=== PATIENT | male | born 1965 | race American Indian/Alaskan Native ===

== ENCOUNTER 2020-04-14 11:51 | Inpatient (IN) | payer OTHER ==
--- NOTE | 2020-04-14 12:38 | Emergency Department Report ---
ED N/V/D HPI - General Chief complaint: Dyspnea/Respdistress Stated complaint: sob/covid (+) 3weeks ago Time Seen by Provider: 04/14/20 12:30 Source: patient Mode of arrival: Ambulatory Limitations: No Limitations - History of Present Illness Initial comments: 54-year-old male with history of diabetes presents to ED with nausea, vomiting, shortness of breath. Patient states symptoms began on yesterday. States he was vomiting all throughout the night. Patient states he took some medication to help with his nausea, which is currently improved, however he is complaining of bilateral flank pain at this time. Possibly from all of the vomiting. He denies any abdominal pain, urinary frequency, and hematuria. Patient states he feels dehydrated at this time. Patient tested positive for myers virus approximately 1 month ago. 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 Patient tested positive, but states he was asymptomatic. Patient denies ever having fever or cough. He denies chest pain, leg pain or swelling. MD complaint: nausea, vomiting -: Last night Description of Vomiting: food contents Associated Abdominal Pain: No Severity: moderate Quality: aching Consistency: constant Improves with: none Worsens with: eating Associated Symptoms: nausea/vomiting, shortness of breath. denies: chest pain, cough, fever/chills - Related Data Home Medications Medication Instructions Recorded Confirmed Last Taken Lisinopril/Hydrochlorothiazide 1 tab PO QDAY 10/23/14 10/23/14 10/22/14 [Zestoretic 10-12.5 mg] Previous Rx's Medication Instructions Recorded Last Taken Type Insulin Glargine,Hum.rec.anlog 30 unit SQ QHS #1 vial 10/24/14 Unknown Rx [Lantus] Insulin Glulisine [Apidra] 5 units SUB-Q ACHS #1 vial 10/24/14 Unknown Rx Metformin HCl [Glucophage] 1,000 mg PO BID #60 tablet 10/24/14 Unknown Rx Allergies Allergy/AdvReac Type Severity Reaction Status Date / Time No Known Allergies Allergy Verified 10/22/14 23:31 ED Review of Systems ROS: Stated complaint: sob/covid (+) 3weeks ago Other details as noted in HPI Comment: All other systems reviewed and negative Constitutional: denies: chills, fever Respiratory: shortness of breath. denies: cough Cardiovascular: denies: chest pain Gastrointestinal: nausea, vomiting. denies: abdominal pain, diarrhea Musculoskeletal: back pain ED Past Medical Hx - Past Medical History Previous Medical History?: Yes Hx Hypertension: Yes Hx Congestive Heart Failure: No Hx Diabetes: Yes Hx Asthma: No Hx COPD: No Additional medical history: colon ca - Social History Smoking Status: Never Smoker Substance Use Type: None - Medications Home Medications: Home Medications Medication Instructions Recorded Confirmed Last Taken Type Lisinopril/Hydrochlorothiazide 1 tab PO QDAY 10/23/14 10/23/14 10/22/14 History [Zestoretic 10-12.5 mg] Insulin Glargine,Hum.rec.anlog 30 unit SQ QHS #1 vial 10/24/14 Unknown Rx [Lantus] Insulin Glulisine [Apidra] 5 units SUB-Q ACHS #1 vial 10/24/14 Unknown Rx Metformin HCl [Glucophage] 1,000 mg PO BID #60 tablet 10/24/14 Unknown Rx ED Physical Exam - General Limitations: No Limitations General appearance: alert, in no apparent distress - Head Head exam: Present: atraumatic, normocephalic - Eye Eye exam: Present: normal appearance - ENT ENT exam: Present: mucous membranes dry - Neck Neck exam: Present: normal inspection - Respiratory Respiratory exam: Present: normal lung sounds bilaterally, other (Tachypnea present) - Cardiovascular Cardiovascular Exam: Present: normal rhythm, tachycardia - GI/Abdominal GI/Abdominal exam: Present: soft. Absent: distended, tenderness - Extremities Exam Extremities exam: Present: normal inspection. Absent: pedal edema, calf tenderness - Back Exam Back exam: Absent: CVA tenderness (R), CVA tenderness (L) - Neurological Exam Neurological exam: Present: alert, oriented X3 - Psychiatric Psychiatric exam: Present: normal affect, normal mood - Skin Skin exam: Present: warm, dry, intact, normal color ED Course Vital Signs 04/14/20 11:56 Temperature 97.4 F L Pulse Rate 117 H Respiratory 40 H Rate Blood Pressure 96/58 O2 Sat by Pulse 97 Oximetry ED Medical Decision Making - Lab Data Result diagrams: 04/14/20 13:02 04/14/20 16:39 - EKG Data -: EKG Interpreted by Me EKG shows normal: sinus rhythm, axis, intervals, QRS complexes, ST-T waves Rate: tachycardia (rate 105) - EKG Data Interpretation: no acute changes - Radiology Data Radiology results: report reviewed, image reviewed - Medical Decision Making 54-year-old male with history of diabetes found to be in DKA. Patient has glucose of 704, with anion gap of 52 and a bicarb of 5. Sodium is 5.8. WBC is 21. UA shows no evidence of UTI. Chest x-ray is negative for infiltrate. Sepsis work-up was done due to patient meeting sirs criteria. Cultures were obtained and 1 dose of cefepime given. IV fluids currently being administered, along with insulin drip. Calcium gluconate given for hyperkalemia. Insulin drip should improve potassium level. EKG showed no changes consistent with hyperkalemia. Patient will be admitted to hospitalist, Dr Cesar, for further management. - Differential Diagnosis DKA, sepsis, pneumonia Critical Care Time: Yes Critical care time in (mins) excluding proc time.: 35 Critical care attestation.: If time is entered above; I have spent that time in minutes in the direct care of this critically ill patient, excluding procedure time. Critical Care Time: 35 min ED Disposition Clinical Impression: DKA (diabetic ketoacidosis) Disposition: OP ADMIT IP TO THIS HOSP Is pt being admited?: Yes Condition: Stable
[2020-04-14 13:18] LABS: Hematocrit 46.1 % (35.5-45.6); Hemoglobin 14.6 gm/dl (11.8-15.2); Mean Corpuscular HGB Conc 32 % (32-34); Mean Corpuscular Volume 96 fl (84-94); Platelet Count 312 K/mm3 (140-440); Red Blood Count 4.79 M/mm3 (3.65-5.03); Red Cell Distribution Width 15.7 % (13.2-15.2)
[2020-04-14 13:26] LABS: INR 1.16 (0.87-1.13); Partial Thromboplastin Time 21.9 Sec. (24.2-36.6)
[2020-04-14] MEDS ORDERED: SODIUM CHLORIDE 0.9% 1000 ML 1,000 ML IV ONE ×2 (13:29)
[2020-04-14 13:39] LABS: Alanine Aminotransferase 17 units/L (7-56); Albumin 4.5 g/dL (3.9-5); BUN/Creatinine Ratio 22; Blood Urea Nitrogen 42 mg/dL (9-20); Calcium 9.4 mg/dL (8.4-10.2); Hemolysis Index 26
[2020-04-14] MEDS ORDERED: SODIUM CHLORIDE 0.9% 1000 ML IV SOLN IV ONE (13:49)
[2020-04-14] MEDS ORDERED: CEFEPIME/NS 2 GM/100 ML 2 GM/100 ML BAG IV ONE (13:50)
--- NOTE | 2020-04-14 13:56 | XRay Report ---
CHEST 1 VIEW INDICATION / CLINICAL INFORMATION: sob. COMPARISON: 12/24/2011 FINDINGS: SUPPORT DEVICES: None. HEART / MEDIASTINUM: No significant abnormality. LUNGS / PLEURA: No significant pulmonary or pleural abnormality. No pneumothorax. ADDITIONAL FINDINGS: No significant additional findings. IMPRESSION: No acute pulmonary or pleural abnormality Signer Name: Bao Solorzano MD FACR Signed: 04/14/2020 1:51 PM Workstation Name: [id number]
[2020-04-14 13:57] LABS: Basophils % (Manual) 0 % (0.0-1.8); Eosinophils % (Manual) 0 % (0.0-4.3); Total Cells Counted 100
[2020-04-14 13:58] LABS: Platelet Estimate Consistent w Auto
[2020-04-14] MEDS ORDERED: D5W/0.45% NACL 1,000 ML IV SCH (14:00)
[2020-04-14 15:08] LABS: Calcium 8.8 mg/dL (8.4-10.2)
[2020-04-14] MEDS ORDERED: CALCIUM GLUCONATE 1,000 MG in SODIUM CHLORIDE 0.9% 100 ML IV ONE (15:17)
[2020-04-14 15:29] LABS: Bilirubin,Urine NEG (Negative); Blood,Urine NEG (Negative); Color,Urine Yellow (Yellow); Protein,Urine <15 mg/dL mg/dL (Negative); Urobilinogen,Urine < 2.0 mg/dL (<2.0)
[2020-04-14] MEDS: INSULIN REGULAR, HUMAN 100 UNITS in SODIUM CHLORIDE 0.9% 99 ML IV SCH ×2 (15:30→23:11)
[2020-04-14] MEDS ORDERED: HYDROmorphone 1 MG/1 ML INJ ONE ×2 (16:02→20:13)
[2020-04-14] MEDS: HYDROmorphone 1 MG/1 ML INJ IV PRN ×2 (16:10→20:18)
[2020-04-14 17:06] LABS: Calcium 7.5 mg/dL (8.4-10.2)
--- NOTE | 2020-04-14 20:49 | History and Physical Report ---
History of Present Illness Date of examination: 04/14/20 Date of admission: 04/14/20 15:14 Chief complaint: Vomiting X 7 to 10 times since last night History of present illness: 54-year-old male with history of diabetes and HTN presents to ED with nausea, vomiting, shortness of breath. Patient states symptoms began yesterday. States he was vomiting throughout the night X7 to 10 times.. Patient states he took some medication to help with his nausea, which is currently improved, however he is complaining of bilateral flank pain at this time. He denies any abdominal pain, urinary frequency, and hematuria. Patient states he feels dehydrated at this time. Patient tested positive for myers virus approximately 1 month ago. 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 Patient tested positive, but states he was asymptomatic. Patient denies ever having fever or cough. He denies chest pain, leg pain or swelling. No exacerbating or relieving fact ors.Took his Insulin as prescribed - Past Medical History Previous Medical History?: Yes Hypertension: Yes Diabetes: Yes Additional medical history: colon ca Surgical Hx Abd surgery - Social History Smoking Status: Never Smoker Substance Use Type: None Family Hx Htn - Medications Home Medications: Home Medications Medication Instructions Recorded Confirmed Last Taken Type Lisinopril/Hydrochlorothiazide 1 tab PO QDAY 10/23/14 10/23/14 10/22/14 History [Zestoretic 10-12.5 mg] Insulin Glargine,Hum.rec.anlog 30 unit SQ QHS #1 vial 10/24/14 Unknown Rx [Lantus] Insulin Glulisine [Apidra] 5 units SUB-Q ACHS #1 vial 10/24/14 Unknown Rx Metformin HCl [Glucophage] 1,000 mg PO BID #60 tablet 10/24/14 Unknown Rx Review of Systems ROS: Stated complaint: sob/covid (+) 3weeks ago Other details as noted in HPI Comment: All other systems reviewed and negative Constitutional: denies: chills, fever Respiratory: shortness of breath. denies: cough Cardiovascular: denies: chest pain Gastrointestinal: nausea, vomiting. denies: abdominal pain, diarrhea Musculoskeletal: back pain x Medications and Allergies Allergies Allergy/AdvReac Type Severity Reaction Status Date / Time No Known Allergies Allergy Verified 10/22/14 23:31 Home Medications Medication Instructions Recorded Confirmed Last Taken Type Lisinopril/Hydrochlorothiazide 1 tab PO QDAY 10/23/14 04/14/20 10/22/14 History [Zestoretic 10-12.5 mg] Insulin NPH Hum/Reg Insulin Hm 30 units SQ BID 04/14/20 04/14/20 Unknown History [Novolin 70-30 Flexpen] Active Meds: Active Medications Hydromorphone HCl (Dilaudid) 0.5 mg IV Q3H PRN PRN Reason: Pain , Severe (7-10) Last Admin: 04/14/20 20:18 Dose: 0.5 mg Documented by: Insulin Human Regular 100 (units/ Sodium Chloride) 100 mls @ 1 mls/hr IV TITR GAYLE; Protocol Last Titration: 04/14/20 20:16 Dose: 6 units/hr, 6 mls/hr Documented by: Potassium Chloride/Dextrose/Sod Cl (D5w/0.45% Nacl/Kcl 20 Meq) 20 meq in 1,000 mls @ 125 mls/hr IV DIRECT GAYLE Dextrose/Sodium Chloride (D5/0.45ns) 1,000 mls @ 125 mls/hr IV DIRECT GAYLE Exam - Constitutional Vitals: Temp Pulse Resp BP Pulse Ox 97.4 F L 107 H 21 104/65 100 04/14/20 11:56 04/14/20 19:45 04/14/20 19:45 04/14/20 19:45 04/14/20 19:45 General appearance: Present: no acute distress, well-nourished - EENT Eyes: Present: PERRL ENT: hearing intact, clear oral mucosa, other (Tongue dry) - Neck Neck: Present: supple, normal ROM - Respiratory Respiratory effort: normal Respiratory: bilateral: CTA - Cardiovascular Heart rate: 78 Rhythm: regular Heart Sounds: Present: S1 & S2. Absent: rub, click - Extremities Extremities: no ischemia, pulses intact, pulses symmetrical, No edema Peripheral Pulses: within normal limits - Abdominal General gastrointestinal: Present: soft, non-tender, non-distended, normal bowel sounds, hernia (Abd wall hernia) Male genitourinary: Present: normal - Integumentary Integumentary: Present: clear, warm, dry - Musculoskeletal Musculoskeletal: gait normal, strength equal bilaterally - Psychiatric Psychiatric: appropriate mood/affect, intact judgment & insight - Neurologic Neurologic: CNII-XII intact, moves all extremities - Allied Health Allied health notes reviewed: nursing, case management HEART Score - HEART Score Troponin: Troponin T < 0.010 ng/mL (0.00-0.029) 04/14/20 13:02 Results - Labs CBC & Chem 7: 04/15/20 04:21 04/15/20 05:35 Labs: Laboratory Last Values WBC 21.0 K/mm3 (4.5-11.0) H 04/14/20 13:02 RBC 4.79 M/mm3 (3.65-5.03) 04/14/20 13:02 Hgb 14.6 gm/dl (11.8-15.2) 04/14/20 13:02 Hct 46.1 % (35.5-45.6) H 04/14/20 13:02 MCV 96 fl (84-94) H 04/14/20 13:02 MCH 31 pg (28-32) 04/14/20 13:02 MCHC 32 % (32-34) 04/14/20 13:02 RDW 15.7 % (13.2-15.2) H 04/14/20 13:02 Plt Count 312 K/mm3 (140-440) 04/14/20 13:02 Add Manual Diff Complete 04/14/20 13:02 Total Counted 100 04/14/20 13:02 Seg Neuts % (Manual) 94.0 % (40.0-70.0) H 04/14/20 13:02 Band Neutrophils % 0 % 04/14/20 13:02 Lymphocytes % (Manual) 4.0 % (13.4-35.0) L 04/14/20 13:02 Reactive Lymphs % (Man) 0 % 04/14/20 13:02 Monocytes % (Manual) 2.0 % (0.0-7.3) 04/14/20 13:02 Eosinophils % (Manual) 0 % (0.0-4.3) 04/14/20 13:02 Basophils % (Manual) 0 % (0.0-1.8) 04/14/20 13:02 Metamyelocytes % 0 % 04/14/20 13:02 Myelocytes % 0 % 04/14/20 13:02 Promyelocytes % 0 % 04/14/20 13:02 Blast Cells % 0 % 04/14/20 13:02 Nucleated RBC % Not Reportable 04/14/20 13:02 Seg Neutrophils # Man 19.7 K/mm3 (1.8-7.7) H 04/14/20 13:02 Band Neutrophils # 0.0 K/mm3 04/14/20 13:02 Lymphocytes # (Manual) 0.8 K/mm3 (1.2-5.4) L 04/14/20 13:02 Abs React Lymphs (Man) 0.0 K/mm3 04/14/20 13:02 Monocytes # (Manual) 0.4 K/mm3 (0.0-0.8) 04/14/20 13:02 Eosinophils # (Manual) 0.0 K/mm3 (0.0-0.4) 04/14/20 13:02 Basophils # (Manual) 0.0 K/mm3 (0.0-0.1) 04/14/20 13:02 Metamyelocytes # 0.0 K/mm3 04/14/20 13:02 Myelocytes # 0.0 K/mm3 04/14/20 13:02 Promyelocytes # 0.0 K/mm3 04/14/20 13:02 Blast Cells # 0.0 K/mm3 04/14/20 13:02 WBC Morphology Not Reportable 04/14/20 13:02 Hypersegmented Neuts Not Reportable 04/14/20 13:02 Hyposegmented Neuts Not Reportable 04/14/20 13:02 Hypogranular Neuts Not Reportable 04/14/20 13:02 Smudge Cells Not Reportable 04/14/20 13:02 Toxic Granulation Not Reportable 04/14/20 13:02 Toxic Vacuolation Not Reportable 04/14/20 13:02 Dohle Bodies Not Reportable 04/14/20 13:02 Pelger-Huet Anomaly Not Reportable 04/14/20 13:02 Oskar Rods Not Reportable 04/14/20 13:02 Platelet Estimate Consistent w auto 04/14/20 13:02 Clumped Platelets Not Reportable 04/14/20 13:02 Plt Clumps, EDTA Not Reportable 04/14/20 13:02 Large Platelets Not Reportable 04/14/20 13:02 Giant Platelets Not Reportable 04/14/20 13:02 Platelet Satelliting Not Reportable 04/14/20 13:02 Plt Morphology Comment Not Reportable 04/14/20 13:02 RBC Morphology Not Reportable 04/14/20 13:02 Dimorphic RBCs Not Reportable 04/14/20 13:02 Polychromasia Not Reportable 04/14/20 13:02 Hypochromasia Not Reportable 04/14/20 13:02 Poikilocytosis Not Reportable 04/14/20 13:02 Anisocytosis Not Reportable 04/14/20 13:02 Microcytosis Not Reportable 04/14/20 13:02 Macrocytosis Not Reportable 04/14/20 13:02 Spherocytes Not Reportable 04/14/20 13:02 Pappenheimer Bodies Not Reportable 04/14/20 13:02 Sickle Cells Not Reportable 04/14/20 13:02 Target Cells Not Reportable 04/14/20 13:02 Tear Drop Cells Not Reportable 04/14/20 13:02 Ovalocytes Not Reportable 04/14/20 13:02 Helmet Cells Not Reportable 04/14/20 13:02 Vazquez-Foraker Bodies Not Reportable 04/14/20 13:02 Thayer Rings Not Reportable 04/14/20 13:02 Maryneal Cells Not Reportable 04/14/20 13:02 Bite Cells Not Reportable 04/14/20 13:02 Crenated Cell Not Reportable 04/14/20 13:02 Elliptocytes Not Reportable 04/14/20 13:02 Acanthocytes (Spur) Not Reportable 04/14/20 13:02 Rouleaux Not Reportable 04/14/20 13:02 Hemoglobin C Crystals Not Reportable 04/14/20 13:02 Schistocytes Not Reportable 04/14/20 13:02 Malaria parasites Not Reportable 04/14/20 13:02 Juanjose Bodies Not Reportable 04/14/20 13:02 Hem Pathologist Commnt No 04/14/20 13:02 PT 14.6 Sec. (12.2-14.9) 04/14/20 13:02 INR 1.16 (0.87-1.13) H 04/14/20 13:02 APTT 21.9 Sec. (24.2-36.6) L 04/14/20 13:02 VBG pH 7.054 (7.320-7.420) L* 04/14/20 13:02 Sodium 136 mmol/L (137-145) L 04/14/20 19:41 Potassium 4.8 mmol/L (3.6-5.0) 04/14/20 19:41 Chloride 98.7 mmol/L (98-107) 04/14/20 19:41 Carbon Dioxide 6 mmol/L (22-30) L* 04/14/20 19:41 Anion Gap 36 mmol/L 04/14/20 19:41 BUN 37 mg/dL (9-20) H 04/14/20 19:41 Creatinine 1.6 mg/dL (0.8-1.5) H 04/14/20 19:41 Estimated GFR 54 ml/min 04/14/20 19:41 BUN/Creatinine Ratio 23 % 04/14/20 19:41 Glucose 371 mg/dL (75-100) H 04/14/20 19:41 POC Glucose 307 (70-105) H 04/14/20 20:27 Ketones Quantitative Large (Negative) 04/14/20 13:02 Lactic Acid 1.60 mmol/L (0.7-2.0) 04/14/20 18:25 Calcium 8.0 mg/dL (8.4-10.2) L 04/14/20 19:41 Phosphorus 10.30 mg/dL (2.5-4.5) H 04/14/20 14:34 Magnesium 2.40 mg/dL (1.7-2.3) H 04/14/20 14:34 Total Bilirubin 0.70 mg/dL (0.1-1.2) 04/14/20 13:02 AST 21 units/L (5-40) 04/14/20 13:02 ALT 17 units/L (7-56) 04/14/20 13:02 Alkaline Phosphatase 92 units/L (35-129) 04/14/20 13:02 Troponin T < 0.010 ng/mL (0.00-0.029) 04/14/20 13:02 Total Protein 7.2 g/dL (6.3-8.2) 04/14/20 13:02 Albumin 4.5 g/dL (3.9-5) 04/14/20 13:02 Albumin/Globulin Ratio 1.7 % 04/14/20 13:02 Urine Color Yellow (Yellow) 04/14/20 15:16 Urine Turbidity Clear (Clear) 04/14/20 15:16 Urine pH 5.0 (5.0-7.0) 04/14/20 15:16 Ur Specific [place] 1.018 (1.003-1.030) 04/14/20 15:16 Urine Protein <15 mg/dl mg/dL (Negative) 04/14/20 15:16 Urine Glucose (UA) >=500 mg/dL (Negative) 04/14/20 15:16 Urine Ketones 80 mg/dL (Negative) 04/14/20 15:16 Urine Blood Neg (Negative) 04/14/20 15:16 Urine Nitrite Neg (Negative) 04/14/20 15:16 Urine Bilirubin Neg (Negative) 04/14/20 15:16 Urine Urobilinogen < 2.0 mg/dL (<2.0) 04/14/20 15:16 Ur Leukocyte Esterase Neg (Negative) 04/14/20 15:16 Urine WBC (Auto) 2.0 /HPF (0.0-6.0) 04/14/20 15:16 Urine RBC (Auto) 1.0 /HPF (0.0-6.0) 04/14/20 15:16 Short CBC 04/14/20 04/15/20 Range/Units 13:02 04:21 WBC 21.0 H 15.8 H (4.5-11.0) K/mm3 Hgb 14.6 13.1 (11.8-15.2) gm/dl Hct 46.1 H 38.2 D (35.5-45.6) % Plt Count 312 241 (140-440) K/mm3 BMP 04/14/20 04/14/20 04/14/20 13:02 14:34 16:39 Sodium 131 L 132 L 134 L Potassium 5.8 H 6.3 H* 5.4 H Chloride 79.5 L 83.1 L 93.3 L Carbon Dioxide 5 L* 4 L* 4 L* BUN 42 H 44 H 41 H Creatinine 1.9 H 2.0 H 1.8 H Glucose 704 H* 761 H* 600 H* Calcium 9.4 8.8 7.5 L 06/19/20 06/19/20 06/19/20 18:25 19:41 22:37 Sodium 137 136 L 140 Potassium 4.9 4.8 4.4 Chloride 98.2 98.7 103.0 Carbon Dioxide 4 L* 6 L* 11 L BUN 39 H 37 H 34 H Creatinine 1.7 H 1.6 H 1.4 Glucose 455 H 371 H 226 H Calcium 8.0 L 8.0 L 8.3 L 04/15/20 04/15/20 04/15/20 01:26 04:21 04:21 Sodium 138 140 141 Potassium 4.2 3.8 4.1 Chloride 104.6 105.9 106.9 Carbon Dioxide 14 L 18 L 17 L BUN 31 H 27 H 27 H Creatinine 1.2 1.1 1.1 Glucose 177 H 110 H 123 H Calcium 8.0 L 8.5 8.3 L 04/15/20 05:35 Sodium 139 Potassium 4.1 Chloride 105.4 Carbon Dioxide 16 L BUN 28 H Creatinine 1.1 Glucose 120 H Calcium 8.3 L Cardiac Enzymes 04/14/20 Range/Units 13:02 Troponin T < 0.010 (0.00-0.029) ng/mL Liver Function 04/14/20 04/15/20 Range/Units 13:02 04:21 Total Bilirubin 0.70 0.60 (0.1-1.2) mg/dL AST 21 20 (5-40) units/L ALT 17 14 (7-56) units/L Alkaline Phosphatase 92 65 (35-129) units/L Albumin 4.5 3.7 L (3.9-5) g/dL Urine 04/14/20 Range/Units 15:16 Urine Color Yellow (Yellow) Urine pH 5.0 (5.0-7.0) Ur Specific [place] 1.018 (1.003-1.030) Urine Protein <15 mg/dl (Negative) mg/dL Urine Glucose (UA) >=500 (Negative) mg/dL Microbiology: Microbiology 04/14/20 13:02 Peripheral/Venous Blood Culture - Preliminary Culture in Progress 04/14/20 13:02 Peripheral/Venous Blood Culture - Preliminary Culture in Progress - Imaging and Cardiology EKG: report reviewed Chest x-ray: report reviewed (NAF) Locke/IV: IV Catheter Type [Left INT / Saline Lock Antecubital] Assessment and Plan Assessment and plan: The high probability OF a clinically significant sudden or life-threatening de terioration of the cardiorespiratory system and endocrine system required my full and direct attention, intervention and postoperative management. The aggregate critical care time was 40 minutes. The time is in addition to time spent performing reported procedures but includes the followin: Data review and interpretation 2: Patient assessment and monitoring of vital signs 3: Documentation 4:: Medication orders and management Advance Directives: Yes - Patient Problems (1) DKA (diabetic ketoacidosis) Current Visit: Yes Status: Acute Qualifiers: Diabetes mellitus type: type 1 Diabetes mellitus complication detail: without coma Qualified Code(s): E10.10 - Type 1 diabetes mellitus with ketoacidosis without coma Plan to address problem: DKA protocol IV insulin IV fluids in the form of normal saline followed by D5 normal saline Potassium supplementation if necessary Check hemoglobin A1c Diet dietitian consult Critical care consult (2) Hypertension Current Visit: No Status: Chronic Qualifiers: Hypertension type: essential hypertension Qualified Code(s): I10 - Essential (primary) hypertension Plan to address problem: Continue antihypertensives (3) Hyponatremia Current Visit: Yes Status: Acute Plan to address problem: Should correct with correction of blood glucose IV normal saline for now (4) Hyperkalemia Current Visit: Yes Status: Acute Plan to address problem: Should correct with correction of blood glucose Calcium gluconate if necessary (5) Metabolic acidosis Current Visit: Yes Status: Acute Plan to address problem: Severe Bicarb drip if necessary Should correct with correction of blood glucose (6) Leukocytosis Current Visit: Yes Status: Acute Qualifiers: Leukocytosis type: unspecified Qualified Code(s): D72.829 - Elevated white blood cell count, unspecified Plan to address problem: Probably demargination IV ceftriaxone empirically (7) SIRS (systemic inflammatory response syndrome) Current Visit: Yes Status: Acute Plan to address problem: clinical picture consistent with Sirs Patient has leukocytosis, elevated lactic acid, tachycardia and tachypnea (8) Suspected COVID-19 virus infection Current Visit: Yes Status: Inactive Plan to address problem: Patient apparently tested +1-month ago in the retirement He works for retirement Patient was asymptomatic Chest x-ray is normal this time We will repeat the coronavirus test Isolation in the meantime No ID consult requested (9) DVT prophylaxis Current Visit: No Status: Acute Plan to address problem: Patient initiated on heparin and GI prophylaxis
[2020-04-14] MEDS ORDERED: oxyCODONE /ACETAMINOPHEN 5-325MG TAB PO PRN (21:16)
[2020-04-14] MEDS ORDERED: ACETAMINOPHEN 325 MG TAB PO PRN (21:16)
[2020-04-14] MEDS ORDERED: DEXTROSE 50% IN WATER (25GM) 50 ML SYRINGE IV PRN (21:19)
[2020-04-14] MEDS ORDERED: D5W/0.45% NACL 1,000 ML IV ONE (21:35)
[2020-04-14] MEDS ORDERED: POTASSIUM CHLORIDE 10 MEQ 10 MEQ/100 ML BAG IV SCH (22:00)
[2020-04-14] MEDS: FAMOTIDINE 20 MG/2 ML INJ IV SCH (22:25)
[2020-04-14] MEDS: ONDANSETRON 4 MG/2 ML INJ IV PRN (22:56)
[2020-04-14 23:00] LABS: BUN/Creatinine Ratio 24; Blood Urea Nitrogen 34 mg/dL (9-20); Calcium 8.3 mg/dL (8.4-10.2); Hemolysis Index 10
[2020-04-15] MEDS: INSULIN REGULAR, HUMAN 100 UNITS in SODIUM CHLORIDE 0.9% 99 ML IV SCH ×4 (00:10→16:15)
[2020-04-15 02:40] LABS: BUN/Creatinine Ratio 26; Blood Urea Nitrogen 31 mg/dL (9-20); Hemolysis Index 11
[2020-04-15] MEDS: METOCLOPRAMIDE 10 MG/2 ML INJ IV PRN ×3 (04:13→20:10)
[2020-04-15 05:28] LABS: Basophils # (Auto) 0.1 K/mm3 (0.0-0.1); Basophils % (Auto) 0.9 % (0.0-1.8); Hematocrit 38.2 % (35.5-45.6); Hemoglobin 13.1 gm/dl (11.8-15.2); Lymphocytes # (Auto) 0.8 K/mm3 (1.2-5.4); Mean Corpuscular HGB Conc 34 % (32-34); Mean Corpuscular Volume 87 fl (84-94); Monocytes # (Auto) 1.2 K/mm3 (0.0-0.8); Monocytes % (Auto) 7.4 % (0.0-7.3); Platelet Count 241 K/mm3 (140-440); Red Blood Count 4.37 M/mm3 (3.65-5.03); Red Cell Distribution Width 14.2 % (13.2-15.2)
[2020-04-15 05:44] LABS: Alanine Aminotransferase 14 units/L (7-56); Albumin 3.7 g/dL (3.9-5); BUN/Creatinine Ratio 25; Blood Urea Nitrogen 27 mg/dL (9-20); Calcium 8.5 mg/dL (8.4-10.2); Hemolysis Index 19
[2020-04-15 05:45] LABS: BUN/Creatinine Ratio 25; Blood Urea Nitrogen 27 mg/dL (9-20); Calcium 8.3 mg/dL (8.4-10.2); Hemolysis Index 5
[2020-04-15 06:12] LABS: BUN/Creatinine Ratio 25; Blood Urea Nitrogen 28 mg/dL (9-20); Calcium 8.3 mg/dL (8.4-10.2); Hemolysis Index 5
--- NOTE | 2020-04-15 07:14 | Progress Note ---
Assessment and Plan The high probability OF a clinically significant sudden or life-threatening deterioration of the cardiorespiratory system and endocrine system required my full and direct attention, intervention and postoperative management. The aggregate critical care time was 35 minutes. The time is in addition to time spent performing reported procedures but includes the followin: Data review and interpretation 2: Patient assessment and monitoring of vital signs 3: Documentation 4:: Medication orders and management Day #2 Still very nauseous and vomiting Anion gap persistent - Patient Problems (1) DKA (diabetic ketoacidosis) Current Visit: Yes Status: Acute Qualifiers: Diabetes mellitus type: type 1 Diabetes mellitus complication detail: without coma Qualified Code(s): E10.10 - Type 1 diabetes mellitus with ketoacidosis without coma Plan to address problem: DKA protocol IV insulin IV fluids in the form of normal saline followed by D5 normal saline Potassium supplementation if necessary Check hemoglobin A1c Diet dietitian consult Critical care consult (2) Hypertension Current Visit: No Status: Chronic Qualifiers: Hypertension type: essential hypertension Qualified Code(s): I10 - Essential (primary) hypertension Plan to address problem: Continue antihypertensives (3) Hyponatremia Current Visit: Yes Status: Acute Plan to address problem: Should correct with correction of blood glucose IV normal saline for now (4) Hyperkalemia Current Visit: Yes Status: Acute Plan to address problem: Should correct with correction of blood glucose Calcium gluconate if necessary (5) Metabolic acidosis Current Visit: Yes Status: Acute Plan to address problem: Severe Bicarb drip if necessary Should correct with correction of blood glucose (6) Leukocytosis Current Visit: Yes Status: Acute Qualifiers: Leukocytosis type: unspecified Qualified Code(s): D72.829 - Elevated white blood cell count, unspecified Plan to address problem: Probably demargination IV ceftriaxone empirically (7) SIRS (systemic inflammatory response syndrome) Current Visit: Yes Status: Acute Plan to address problem: clinical picture consistent with Sirs Patient has leukocytosis, elevated lactic acid, tachycardia and tachypnea (8) Suspected COVID-19 virus infection Current Visit: Yes Status: Inactive Plan to address problem: Patient apparently tested +1-month ago in the retirement He works for retirement Patient was asymptomatic Chest x-ray is normal this time We will repeat the coronavirus test Isolation in the meantime No ID consult requested Pending (9) DVT prophylaxis Current Visit: No Status: Acute Plan to address problem: Patient initiated on heparin and GI prophylaxis Subjective Date of service: 04/15/20 Principal diagnosis: DKA Interval history: 54-year-old male with history of diabetes and HTN presents to ED with nausea, vomiting, shortness of breath. Patient states symptoms began yesterday. States he was vomiting throughout the night X7 to 10 times.. Patient states he took some medication to help with his nausea, which is currently improved, however he is complaining of bilateral flank pain at this time. He denies any abdominal pain, urinary frequency, and hematuria. Patient states he feels dehydrated at this time. Patient tested positive for myers virus approximately 1 month ago. Patient states he is a [employer] and all staff was tested. Patient tested positive, but states he was asymptomatic. Patient denies ever having fever or cough. He denies chest pain, leg pain or swelling. No exacerbating or relieving factors.Took his Insulin as prescribed. Still nauseous Objective - Constitutional Vitals: Vital Signs - 12hr 04/14/20 04/14/20 04/14/20 19:15 19:30 19:45 Temperature Pulse Rate 108 H 108 H 107 H Pulse Rate [ None] Respiratory 20 17 21 Rate Blood Pressure 102/58 109/62 104/65 O2 Sat by Pulse 100 100 Oximetry 04/14/20 04/14/20 04/14/20 19:46 20:00 20:30 Temperature Pulse Rate 109 H 107 H 113 H Pulse Rate [ None] Respiratory 21 21 25 H Rate Blood Pressure 104/65 114/61 109/61 O2 Sat by Pulse 100 100 99 Oximetry 04/14/20 04/14/20 04/14/20 21:00 21:09 21:30 Temperature 98 F Pulse Rate 102 H 103 H Pulse Rate [ None] Respiratory 20 17 Rate Blood Pressure 105/63 109/62 O2 Sat by Pulse 100 100 Oximetry 04/14/20 04/14/20 04/14/20 22:20 22:23 22:53 Temperature 98.1 F Pulse Rate 123 H Pulse Rate [ 100 H None] Respiratory 23 26 H Rate Blood Pressure 112/61 112/61 O2 Sat by Pulse 100 99 Oximetry 04/14/20 04/14/20 04/15/20 23:00 23:43 00:00 Temperature 98.5 F Pulse Rate 99 H 94 H Pulse Rate [ 100 H 90 None] Respiratory 22 19 Rate Blood Pressure 112/61 117/70 O2 Sat by Pulse 100 97 Oximetry 04/15/20 04/15/20 04/15/20 01:00 02:00 03:00 Temperature Pulse Rate 116 H 85 90 Pulse Rate [ 93 H None] Respiratory 22 17 17 Rate Blood Pressure 118/65 115/58 115/58 O2 Sat by Pulse 98 95 99 Oximetry 04/15/20 04/15/20 04/15/20 03:20 04:00 05:00 Temperature 98.7 F Pulse Rate 90 84 Pulse Rate [ None] Respiratory 16 17 Rate Blood Pressure 102/45 130/62 O2 Sat by Pulse 100 98 Oximetry 04/15/20 06:00 Temperature Pulse Rate 91 H Pulse Rate [ None] Respiratory 12 Rate Blood Pressure 125/59 O2 Sat by Pulse 100 Oximetry General appearance: Present: no acute distress, well-nourished - EENT Eyes: PERRL, EOM intact ENT: hearing intact, clear oral mucosa Ears: bilateral: normal - Neck Neck: supple, normal ROM - Respiratory Respiratory effort: normal Respiratory: bilateral: CTA - Breasts Breasts: normal - Cardiovascular Rhythm: regular Heart Sounds: Present: S1 & S2. Absent: gallop, rub Extremities: pulses intact, No edema, normal color, Full ROM - Gastrointestinal General gastrointestinal: Present: soft, non-tender, non-distended, normal bowel sounds - Genitourinary Male genitourinary: normal - Integumentary Integumentary: clear, warm, dry - Musculoskeletal Musculoskeletal: 1, strength equal bilaterally - Neurologic Neurologic: moves all extremities - Psychiatric Psychiatric: memory intact, appropriate mood/affect, intact judgment & insight - Labs CBC & Chem 7: 04/15/20 04:21 04/18/20 04:59 Labs: Abnormal lab results 04/14/20 04/14/20 04/14/20 Range/Units 13:02 13:02 13:02 WBC 21.0 H (4.5-11.0) K/mm3 Hct 46.1 H (35.5-45.6) % MCV 96 H (84-94) fl RDW 15.7 H (13.2-15.2) % Lymph % (Auto) (13.4-35.0) % [place] % (Auto) (0.0-7.3) % Lymph # (1.2-5.4) K/mm3 [place] # (0.0-0.8) K/mm3 Seg Neutrophils % (40.0-70.0) % Seg Neuts % (Manual) 94.0 H (40.0-70.0) % Lymphocytes % (Manual) 4.0 L (13.4-35.0) % Seg Neutrophils # (1.8-7.7) K/mm3 Seg Neutrophils # Man 19.7 H (1.8-7.7) K/mm3 Lymphocytes # (Manual) 0.8 L (1.2-5.4) K/mm3 INR 1.16 H (0.87-1.13) APTT 21.9 L (24.2-36.6) Sec. VBG pH (7.320-7.420) Sodium 131 L (137-145) mmol/L Potassium 5.8 H (3.6-5.0) mmol/L Chloride 79.5 L (98-107) mmol/L Carbon Dioxide 5 L* (22-30) mmol/L BUN 42 H (9-20) mg/dL Creatinine 1.9 H (0.8-1.5) mg/dL Glucose 704 H* (75-100) mg/dL POC Glucose (70-105) Hemoglobin A1c (4-6) % Lactic Acid (0.7-2.0) mmol/L Calcium (8.4-10.2) mg/dL Phosphorus (2.5-4.5) mg/dL Magnesium (1.7-2.3) mg/dL Albumin (3.9-5) g/dL 04/14/20 04/14/20 04/14/20 Range/Units 13:02 13:02 13:02 WBC (4.5-11.0) K/mm3 Hct (35.5-45.6) % MCV (84-94) fl RDW (13.2-15.2) % Lymph % (Auto) (13.4-35.0) % [place] % (Auto) (0.0-7.3) % Lymph # (1.2-5.4) K/mm3 [place] # (0.0-0.8) K/mm3 Seg Neutrophils % (40.0-70.0) % Seg Neuts % (Manual) (40.0-70.0) % Lymphocytes % (Manual) (13.4-35.0) % Seg Neutrophils # (1.8-7.7) K/mm3 Seg Neutrophils # Man (1.8-7.7) K/mm3 Lymphocytes # (Manual) (1.2-5.4) K/mm3 INR (0.87-1.13) APTT (24.2-36.6) Sec. VBG pH 7.054 L* (7.320-7.420) Sodium (137-145) mmol/L Potassium (3.6-5.0) mmol/L Chloride (98-107) mmol/L Carbon Dioxide (22-30) mmol/L BUN (9-20) mg/dL Creatinine (0.8-1.5) mg/dL Glucose (75-100) mg/dL POC Glucose (70-105) Hemoglobin A1c 11.0 H (4-6) % Lactic Acid 5.70 H* (0.7-2.0) mmol/L Calcium (8.4-10.2) mg/dL Phosphorus (2.5-4.5) mg/dL Magnesium (1.7-2.3) mg/dL Albumin (3.9-5) g/dL 04/14/20 04/14/20 04/14/20 Range/Units 13:23 14:34 14:34 WBC (4.5-11.0) K/mm3 Hct (35.5-45.6) % MCV (84-94) fl RDW (13.2-15.2) % Lymph % (Auto) (13.4-35.0) % [place] % (Auto) (0.0-7.3) % Lymph # (1.2-5.4) K/mm3 [place] # (0.0-0.8) K/mm3 Seg Neutrophils % (40.0-70.0) % Seg Neuts % (Manual) (40.0-70.0) % Lymphocytes % (Manual) (13.4-35.0) % Seg Neutrophils # (1.8-7.7) K/mm3 Seg Neutrophils # Man (1.8-7.7) K/mm3 Lymphocytes # (Manual) (1.2-5.4) K/mm3 INR (0.87-1.13) APTT (24.2-36.6) Sec. VBG pH (7.320-7.420) Sodium (137-145) mmol/L Potassium (3.6-5.0) mmol/L Chloride (98-107) mmol/L Carbon Dioxide (22-30) mmol/L BUN (9-20) mg/dL Creatinine (0.8-1.5) mg/dL Glucose (75-100) mg/dL POC Glucose > 500 H (70-105) Hemoglobin A1c (4-6) % Lactic Acid 5.00 H* (0.7-2.0) mmol/L Calcium (8.4-10.2) mg/dL Phosphorus 10.30 H (2.5-4.5) mg/dL Magnesium 2.40 H (1.7-2.3) mg/dL Albumin (3.9-5) g/dL 04/14/20 04/14/20 04/14/20 Range/Units 14:34 16:39 16:39 WBC (4.5-11.0) K/mm3 Hct (35.5-45.6) % MCV (84-94) fl RDW (13.2-15.2) % Lymph % (Auto) (13.4-35.0) % [place] % (Auto) (0.0-7.3) % Lymph # (1.2-5.4) K/mm3 [place] # (0.0-0.8) K/mm3 Seg Neutrophils % (40.0-70.0) % Seg Neuts % (Manual) (40.0-70.0) % Lymphocytes % (Manual) (13.4-35.0) % Seg Neutrophils # (1.8-7.7) K/mm3 Seg Neutrophils # Man (1.8-7.7) K/mm3 Lymphocytes # (Manual) (1.2-5.4) K/mm3 INR (0.87-1.13) APTT (24.2-36.6) Sec. VBG pH (7.320-7.420) Sodium 132 L 134 L (137-145) mmol/L Potassium 6.3 H* 5.4 H (3.6-5.0) mmol/L Chloride 83.1 L 93.3 L (98-107) mmol/L Carbon Dioxide 4 L* 4 L* (22-30) mmol/L BUN 44 H 41 H (9-20) mg/dL Creatinine 2.0 H 1.8 H (0.8-1.5) mg/dL Glucose 761 H* 600 H* (75-100) mg/dL POC Glucose (70-105) Hemoglobin A1c (4-6) % Lactic Acid 3.00 H* (0.7-2.0) mmol/L Calcium 7.5 L (8.4-10.2) mg/dL Phosphorus (2.5-4.5) mg/dL Magnesium (1.7-2.3) mg/dL Albumin (3.9-5) g/dL 04/14/20 04/14/20 04/14/20 Range/Units 18:25 19:41 19:41 WBC (4.5-11.0) K/mm3 Hct (35.5-45.6) % MCV (84-94) fl RDW (13.2-15.2) % Lymph % (Auto) (13.4-35.0) % [place] % (Auto) (0.0-7.3) % Lymph # (1.2-5.4) K/mm3 [place] # (0.0-0.8) K/mm3 Seg Neutrophils % (40.0-70.0) % Seg Neuts % (Manual) (40.0-70.0) % Lymphocytes % (Manual) (13.4-35.0) % Seg Neutrophils # (1.8-7.7) K/mm3 Seg Neutrophils # Man (1.8-7.7) K/mm3 Lymphocytes # (Manual) (1.2-5.4) K/mm3 INR (0.87-1.13) APTT (24.2-36.6) Sec. VBG pH (7.320-7.420) Sodium 136 L (137-145) mmol/L Potassium (3.6-5.0) mmol/L Chloride (98-107) mmol/L Carbon Dioxide 4 L* 6 L* (22-30) mmol/L BUN 39 H 37 H (9-20) mg/dL Creatinine 1.7 H 1.6 H (0.8-1.5) mg/dL Glucose 455 H 371 H (75-100) mg/dL POC Glucose (70-105) Hemoglobin A1c (4-6) % Lactic Acid (0.7-2.0) mmol/L Calcium 8.0 L 8.0 L (8.4-10.2) mg/dL Phosphorus 7.90 H D (2.5-4.5) mg/dL Magnesium (1.7-2.3) mg/dL Albumin (3.9-5) g/dL 04/14/20 04/14/20 04/14/20 Range/Units 20:27 21:53 22:37 WBC (4.5-11.0) K/mm3 Hct (35.5-45.6) % MCV (84-94) fl RDW (13.2-15.2) % Lymph % (Auto) (13.4-35.0) % [place] % (Auto) (0.0-7.3) % Lymph # (1.2-5.4) K/mm3 [place] # (0.0-0.8) K/mm3 Seg Neutrophils % (40.0-70.0) % Seg Neuts % (Manual) (40.0-70.0) % Lymphocytes % (Manual) (13.4-35.0) % Seg Neutrophils # (1.8-7.7) K/mm3 Seg Neutrophils # Man (1.8-7.7) K/mm3 Lymphocytes # (Manual) (1.2-5.4) K/mm3 INR (0.87-1.13) APTT (24.2-36.6) Sec. VBG pH (7.320-7.420) Sodium (137-145) mmol/L Potassium (3.6-5.0) mmol/L Chloride (98-107) mmol/L Carbon Dioxide 11 L (22-30) mmol/L BUN 34 H (9-20) mg/dL Creatinine (0.8-1.5) mg/dL Glucose 226 H (75-100) mg/dL POC Glucose 307 H 273 H (70-105) Hemoglobin A1c (4-6) % Lactic Acid (0.7-2.0) mmol/L Calcium 8.3 L (8.4-10.2) mg/dL Phosphorus (2.5-4.5) mg/dL Magnesium (1.7-2.3) mg/dL Albumin (3.9-5) g/dL 04/14/20 04/15/20 04/15/20 Range/Units 23:19 00:19 01:21 WBC (4.5-11.0) K/mm3 Hct (35.5-45.6) % MCV (84-94) fl RDW (13.2-15.2) % Lymph % (Auto) (13.4-35.0) % [place] % (Auto) (0.0-7.3) % Lymph # (1.2-5.4) K/mm3 [place] # (0.0-0.8) K/mm3 Seg Neutrophils % (40.0-70.0) % Seg Neuts % (Manual) (40.0-70.0) % Lymphocytes % (Manual) (13.4-35.0) % Seg Neutrophils # (1.8-7.7) K/mm3 Seg Neutrophils # Man (1.8-7.7) K/mm3 Lymphocytes # (Manual) (1.2-5.4) K/mm3 INR (0.87-1.13) APTT (24.2-36.6) Sec. VBG pH (7.320-7.420) Sodium (137-145) mmol/L Potassium (3.6-5.0) mmol/L Chloride (98-107) mmol/L Carbon Dioxide (22-30) mmol/L BUN (9-20) mg/dL Creatinine (0.8-1.5) mg/dL Glucose (75-100) mg/dL POC Glucose 244 H 174 H 184 H (70-105) Hemoglobin A1c (4-6) % Lactic Acid (0.7-2.0) mmol/L Calcium (8.4-10.2) mg/dL Phosphorus (2.5-4.5) mg/dL Magnesium (1.7-2.3) mg/dL Albumin (3.9-5) g/dL 04/15/20 04/15/20 04/15/20 Range/Units 01:26 02:09 03:14 WBC (4.5-11.0) K/mm3 Hct (35.5-45.6) % MCV (84-94) fl RDW (13.2-15.2) % Lymph % (Auto) (13.4-35.0) % [place] % (Auto) (0.0-7.3) % Lymph # (1.2-5.4) K/mm3 [place] # (0.0-0.8) K/mm3 Seg Neutrophils % (40.0-70.0) % Seg Neuts % (Manual) (40.0-70.0) % Lymphocytes % (Manual) (13.4-35.0) % Seg Neutrophils # (1.8-7.7) K/mm3 Seg Neutrophils # Man (1.8-7.7) K/mm3 Lymphocytes # (Manual) (1.2-5.4) K/mm3 INR (0.87-1.13) APTT (24.2-36.6) Sec. VBG pH (7.320-7.420) Sodium (137-145) mmol/L Potassium (3.6-5.0) mmol/L Chloride (98-107) mmol/L Carbon Dioxide 14 L (22-30) mmol/L BUN 31 H (9-20) mg/dL Creatinine (0.8-1.5) mg/dL Glucose 177 H (75-100) mg/dL POC Glucose 189 H 153 H (70-105) Hemoglobin A1c (4-6) % Lactic Acid (0.7-2.0) mmol/L Calcium 8.0 L (8.4-10.2) mg/dL Phosphorus (2.5-4.5) mg/dL Magnesium (1.7-2.3) mg/dL Albumin (3.9-5) g/dL 04/15/20 04/15/20 04/15/20 Range/Units 04:09 04:21 04:21 WBC 15.8 H (4.5-11.0) K/mm3 Hct (35.5-45.6) % MCV (84-94) fl RDW (13.2-15.2) % Lymph % (Auto) 5.0 L (13.4-35.0) % [place] % (Auto) 7.4 H (0.0-7.3) % Lymph # 0.8 L (1.2-5.4) K/mm3 [place] # 1.2 H (0.0-0.8) K/mm3 Seg Neutrophils % 86.7 H (40.0-70.0) % Seg Neuts % (Manual) (40.0-70.0) % Lymphocytes % (Manual) (13.4-35.0) % Seg Neutrophils # 13.7 H (1.8-7.7) K/mm3 Seg Neutrophils # Man (1.8-7.7) K/mm3 Lymphocytes # (Manual) (1.2-5.4) K/mm3 INR (0.87-1.13) APTT (24.2-36.6) Sec. VBG pH (7.320-7.420) Sodium (137-145) mmol/L Potassium (3.6-5.0) mmol/L Chloride (98-107) mmol/L Carbon Dioxide 18 L (22-30) mmol/L BUN 27 H (9-20) mg/dL Creatinine (0.8-1.5) mg/dL Glucose 110 H (75-100) mg/dL POC Glucose 117 H (70-105) Hemoglobin A1c (4-6) % Lactic Acid (0.7-2.0) mmol/L Calcium (8.4-10.2) mg/dL Phosphorus (2.5-4.5) mg/dL Magnesium (1.7-2.3) mg/dL Albumin 3.7 L (3.9-5) g/dL 04/15/20 04/15/20 04/15/20 Range/Units 04:21 05:23 05:35 WBC (4.5-11.0) K/mm3 Hct (35.5-45.6) % MCV (84-94) fl RDW (13.2-15.2) % Lymph % (Auto) (13.4-35.0) % [place] % (Auto) (0.0-7.3) % Lymph # (1.2-5.4) K/mm3 [place] # (0.0-0.8) K/mm3 Seg Neutrophils % (40.0-70.0) % Seg Neuts % (Manual) (40.0-70.0) % Lymphocytes % (Manual) (13.4-35.0) % Seg Neutrophils # (1.8-7.7) K/mm3 Seg Neutrophils # Man (1.8-7.7) K/mm3 Lymphocytes # (Manual) (1.2-5.4) K/mm3 INR (0.87-1.13) APTT (24.2-36.6) Sec. VBG pH (7.320-7.420) Sodium (137-145) mmol/L Potassium (3.6-5.0) mmol/L Chloride (98-107) mmol/L Carbon Dioxide 17 L 16 L (22-30) mmol/L BUN 27 H 28 H (9-20) mg/dL Creatinine (0.8-1.5) mg/dL Glucose 123 H 120 H (75-100) mg/dL POC Glucose 117 H (70-105) Hemoglobin A1c (4-6) % Lactic Acid (0.7-2.0) mmol/L Calcium 8.3 L 8.3 L (8.4-10.2) mg/dL Phosphorus (2.5-4.5) mg/dL Magnesium (1.7-2.3) mg/dL Albumin (3.9-5) g/dL 20 Range/Units 06:18 WBC (4.5-11.0) K/mm3 Hct (35.5-45.6) % MCV (84-94) fl RDW (13.2-15.2) % Lymph % (Auto) (13.4-35.0) % [place] % (Auto) (0.0-7.3) % Lymph # (1.2-5.4) K/mm3 [place] # (0.0-0.8) K/mm3 Seg Neutrophils % (40.0-70.0) % Seg Neuts % (Manual) (40.0-70.0) % Lymphocytes % (Manual) (13.4-35.0) % Seg Neutrophils # (1.8-7.7) K/mm3 Seg Neutrophils # Man (1.8-7.7) K/mm3 Lymphocytes # (Manual) (1.2-5.4) K/mm3 INR (0.87-1.13) APTT (24.2-36.6) Sec. VBG pH (7.320-7.420) Sodium (137-145) mmol/L Potassium (3.6-5.0) mmol/L Chloride (98-107) mmol/L Carbon Dioxide (22-30) mmol/L BUN (9-20) mg/dL Creatinine (0.8-1.5) mg/dL Glucose (75-100) mg/dL POC Glucose 114 H (70-105) Hemoglobin A1c (4-6) % Lactic Acid (0.7-2.0) mmol/L Calcium (8.4-10.2) mg/dL Phosphorus (2.5-4.5) mg/dL Magnesium (1.7-2.3) mg/dL Albumin (3.9-5) g/dL HEART Score - HEART Score Troponin: Troponin T < 0.010 ng/mL (0.00-0.029) 04/14/20 13:02
[2020-04-15] MEDS: D5W/0.45% NACL/KCL 20 MEQ 20 MEQ/1,000 ML BAG IV SCH ×2 (07:30→16:16)
[2020-04-15] MEDS ORDERED: INSULIN NPH/REGULAR 70/30 INJ SUB-Q SCH (08:00)
[2020-04-15] MEDS ORDERED: hydroCHLOROthiazide 12.5 MG CAP PO SCH (10:00)
[2020-04-15] MEDS ORDERED: INSULIN NPH HUM SQ SCH (10:00)
[2020-04-15] MEDS ORDERED: REG INSULIN SQ SCH (10:00)
[2020-04-15] MEDS ORDERED: NON-FORMULARY EACH (Lisinopril/Hydrochlorothiazide [Zestoretic 10-12.5 Mg] 1 TAB) PO SCH (10:00)
[2020-04-15] MEDS: FAMOTIDINE 20 MG/2 ML INJ IV SCH ×2 (10:09→21:32)
[2020-04-15] MEDS: ONDANSETRON 4 MG/2 ML INJ IV PRN ×2 (10:09→18:49)
[2020-04-15] MEDS: cefTRIAXone/NS 2 GM/100 ML 2 GM/100 ML BAG IV SCH (10:10)
[2020-04-15] MEDS: LISINOPRIL 10 MG TAB PO SCH (11:09)
--- NOTE | 2020-04-15 13:09 | Consultation ---
History of Present Illness - Reason for Consult Consult date: 04/15/20 DKA Requesting physician: AUTUMN LORENZO - History of Present Illness 54 y/o male with known DM admitted with DKA. Anion Gap remains elevated this am still on insulin drip but at low dose. Blood sugars improving, and fluids have been switched to D5 with potassium. Normal renal function. Patient has been having nausea and vomiting for the last 7-10 days. Past History Past Medical History: diabetes, hypertension Past Surgical History: No surgical history Social history: no significant social history, other (works at a intermediate) Family history: no significant family history Medications and Allergies Allergies Allergy/AdvReac Type Severity Reaction Status Date / Time No Known Allergies Allergy Verified 10/22/14 23:31 Home Medications Medication Instructions Recorded Confirmed Last Taken Type Lisinopril/Hydrochlorothiazide 1 tab PO QDAY 10/23/14 04/14/20 10/22/14 History [Zestoretic 10-12.5 mg] Insulin NPH Hum/Reg Insulin Hm 30 units SQ BID 04/14/20 04/14/20 Unknown History [Novolin 70-30 Flexpen] Active Meds: Active Medications Acetaminophen (Tylenol) 650 mg PO Q4H PRN PRN Reason: Pain MILD(1-3)/Fever >100.5/GUTIÉRREZ Dextrose (D50w (25gm) Syringe) 0 ml IV Q30MIN PRN; Protocol PRN Reason: Hypoglycemia Famotidine (Pepcid) 20 mg IV BID GAYLE Last Admin: 04/15/20 10:09 Dose: 20 mg Documented by: Potassium Chloride/Dextrose/Sod Cl (D5w/0.45% Nacl/Kcl 20 Meq) 20 meq in 1,000 mls @ 125 mls/hr IV DIRECT GAYLE Last Admin: 04/15/20 07:30 Dose: 125 mls/hr Documented by: Insulin Human Regular 100 (units/ Sodium Chloride) 100 mls @ 1 mls/hr IV TITR GAYLE; Protocol Last Titration: 04/15/20 12:15 Dose: 1.5 units/hr, 1.5 mls/hr Documented by: Ceftriaxone Sodium (Rocephin/Ns 2 Gm/100 Ml) 2 gm in 100 mls @ 200 mls/hr IV Q24HR GAYLE; Protocol Last Admin: 04/15/20 10:10 Dose: 200 mls/hr Documented by: Lisinopril (Zestril) 10 mg PO QDAY [facility] Last Admin: 04/15/20 11:09 Dose: 10 mg Documented by: Metoclopramide HCl (Reglan) 10 mg IV Q6H PRN PRN Reason: Nausea And Vomiting Last Admin: 04/15/20 04:13 Dose: 10 mg Documented by: Ondansetron HCl (Zofran) 4 mg IV Q8H PRN PRN Reason: Nausea And Vomiting Last Admin: 04/15/20 10:09 Dose: 4 mg Documented by: Oxycodone/Acetaminophen (Percocet 5/325) 1 tab PO Q6H PRN PRN Reason: Pain, Moderate (4-6) Sodium Chloride (Sodium Chloride Flush Syringe 10 Ml) 10 ml IV BID [facility] Last Admin: 04/15/20 10:10 Dose: 10 ml Documented by: Sodium Chloride (Sodium Chloride Flush Syringe 10 Ml) 10 ml IV PRN PRN PRN Reason: LINE FLUSH Review of Systems All systems: negative Exam - Constitutional Vitals: Temp Pulse Resp BP Pulse Ox 98.7 F 67 15 107/56 98 04/15/20 03:20 04/15/20 11:49 04/15/20 11:00 04/15/20 11:09 04/15/20 11:00 General appearance: Present: no acute distress, well-nourished - EENT Eyes: Present: PERRL, EOM intact ENT: hearing intact - Neck Neck: Present: supple, normal ROM - Respiratory Respiratory effort: normal Respiratory: bilateral: CTA - Cardiovascular Rhythm: regular - Extremities Extremities: no ischemia, pulses intact - Abdominal General gastrointestinal: Present: soft, non-tender Male genitourinary: Present: deferred - Rectal Rectal Exam: deferred - Musculoskeletal Musculoskeletal: strength equal bilaterally Results - Labs CBC & Chem 7: 04/15/20 04:21 04/15/20 05:35 Labs: Abnormal lab results 04/14/20 04/14/20 04/14/20 Range/Units 13:02 13:02 13:02 WBC 21.0 H (4.5-11.0) K/mm3 Hct 46.1 H (35.5-45.6) % MCV 96 H (84-94) fl RDW 15.7 H (13.2-15.2) % Lymph % (Auto) (13.4-35.0) % Perry % (Auto) (0.0-7.3) % Lymph # (1.2-5.4) K/mm3 Perry # (0.0-0.8) K/mm3 Seg Neutrophils % (40.0-70.0) % Seg Neuts % (Manual) 94.0 H (40.0-70.0) % Lymphocytes % (Manual) 4.0 L (13.4-35.0) % Seg Neutrophils # (1.8-7.7) K/mm3 Seg Neutrophils # Man 19.7 H (1.8-7.7) K/mm3 Lymphocytes # (Manual) 0.8 L (1.2-5.4) K/mm3 INR 1.16 H (0.87-1.13) APTT 21.9 L (24.2-36.6) Sec. VBG pH (7.320-7.420) Sodium 131 L (137-145) mmol/L Potassium 5.8 H (3.6-5.0) mmol/L Chloride 79.5 L (98-107) mmol/L Carbon Dioxide 5 L* (22-30) mmol/L BUN 42 H (9-20) mg/dL Creatinine 1.9 H (0.8-1.5) mg/dL Glucose 704 H* (75-100) mg/dL POC Glucose (70-105) Hemoglobin A1c (4-6) % Lactic Acid (0.7-2.0) mmol/L Calcium (8.4-10.2) mg/dL Phosphorus (2.5-4.5) mg/dL Magnesium (1.7-2.3) mg/dL Albumin (3.9-5) g/dL 04/14/20 04/14/20 04/14/20 Range/Units 13:02 13:02 13:02 WBC (4.5-11.0) K/mm3 Hct (35.5-45.6) % MCV (84-94) fl RDW (13.2-15.2) % Lymph % (Auto) (13.4-35.0) % Perry % (Auto) (0.0-7.3) % Lymph # (1.2-5.4) K/mm3 Perry # (0.0-0.8) K/mm3 Seg Neutrophils % (40.0-70.0) % Seg Neuts % (Manual) (40.0-70.0) % Lymphocytes % (Manual) (13.4-35.0) % Seg Neutrophils # (1.8-7.7) K/mm3 Seg Neutrophils # Man (1.8-7.7) K/mm3 Lymphocytes # (Manual) (1.2-5.4) K/mm3 INR (0.87-1.13) APTT (24.2-36.6) Sec. VBG pH 7.054 L* (7.320-7.420) Sodium (137-145) mmol/L Potassium (3.6-5.0) mmol/L Chloride (98-107) mmol/L Carbon Dioxide (22-30) mmol/L BUN (9-20) mg/dL Creatinine (0.8-1.5) mg/dL Glucose (75-100) mg/dL POC Glucose (70-105) Hemoglobin A1c 11.0 H (4-6) % Lactic Acid 5.70 H* (0.7-2.0) mmol/L Calcium (8.4-10.2) mg/dL Phosphorus (2.5-4.5) mg/dL Magnesium (1.7-2.3) mg/dL Albumin (3.9-5) g/dL 04/14/20 04/14/20 04/14/20 Range/Units 13:23 14:34 14:34 WBC (4.5-11.0) K/mm3 Hct (35.5-45.6) % MCV (84-94) fl RDW (13.2-15.2) % Lymph % (Auto) (13.4-35.0) % Perry % (Auto) (0.0-7.3) % Lymph # (1.2-5.4) K/mm3 Perry # (0.0-0.8) K/mm3 Seg Neutrophils % (40.0-70.0) % Seg Neuts % (Manual) (40.0-70.0) % Lymphocytes % (Manual) (13.4-35.0) % Seg Neutrophils # (1.8-7.7) K/mm3 Seg Neutrophils # Man (1.8-7.7) K/mm3 Lymphocytes # (Manual) (1.2-5.4) K/mm3 INR (0.87-1.13) APTT (24.2-36.6) Sec. VBG pH (7.320-7.420) Sodium (137-145) mmol/L Potassium (3.6-5.0) mmol/L Chloride (98-107) mmol/L Carbon Dioxide (22-30) mmol/L BUN (9-20) mg/dL Creatinine (0.8-1.5) mg/dL Glucose (75-100) mg/dL POC Glucose > 500 H (70-105) Hemoglobin A1c (4-6) % Lactic Acid 5.00 H* (0.7-2.0) mmol/L Calcium (8.4-10.2) mg/dL Phosphorus 10.30 H (2.5-4.5) mg/dL Magnesium 2.40 H (1.7-2.3) mg/dL Albumin (3.9-5) g/dL 04/14/20 04/14/20 04/14/20 Range/Units 14:34 16:39 16:39 WBC (4.5-11.0) K/mm3 Hct (35.5-45.6) % MCV (84-94) fl RDW (13.2-15.2) % Lymph % (Auto) (13.4-35.0) % Perry % (Auto) (0.0-7.3) % Lymph # (1.2-5.4) K/mm3 Perry # (0.0-0.8) K/mm3 Seg Neutrophils % (40.0-70.0) % Seg Neuts % (Manual) (40.0-70.0) % Lymphocytes % (Manual) (13.4-35.0) % Seg Neutrophils # (1.8-7.7) K/mm3 Seg Neutrophils # Man (1.8-7.7) K/mm3 Lymphocytes # (Manual) (1.2-5.4) K/mm3 INR (0.87-1.13) APTT (24.2-36.6) Sec. VBG pH (7.320-7.420) Sodium 132 L 134 L (137-145) mmol/L Potassium 6.3 H* 5.4 H (3.6-5.0) mmol/L Chloride 83.1 L 93.3 L (98-107) mmol/L Carbon Dioxide 4 L* 4 L* (22-30) mmol/L BUN 44 H 41 H (9-20) mg/dL Creatinine 2.0 H 1.8 H (0.8-1.5) mg/dL Glucose 761 H* 600 H* (75-100) mg/dL POC Glucose (70-105) Hemoglobin A1c (4-6) % Lactic Acid 3.00 H* (0.7-2.0) mmol/L Calcium 7.5 L (8.4-10.2) mg/dL Phosphorus (2.5-4.5) mg/dL Magnesium (1.7-2.3) mg/dL Albumin (3.9-5) g/dL 04/14/20 04/14/20 04/14/20 Range/Units 18:25 19:41 19:41 WBC (4.5-11.0) K/mm3 Hct (35.5-45.6) % MCV (84-94) fl RDW (13.2-15.2) % Lymph % (Auto) (13.4-35.0) % Perry % (Auto) (0.0-7.3) % Lymph # (1.2-5.4) K/mm3 Perry # (0.0-0.8) K/mm3 Seg Neutrophils % (40.0-70.0) % Seg Neuts % (Manual) (40.0-70.0) % Lymphocytes % (Manual) (13.4-35.0) % Seg Neutrophils # (1.8-7.7) K/mm3 Seg Neutrophils # Man (1.8-7.7) K/mm3 Lymphocytes # (Manual) (1.2-5.4) K/mm3 INR (0.87-1.13) APTT (24.2-36.6) Sec. VBG pH (7.320-7.420) Sodium 136 L (137-145) mmol/L Potassium (3.6-5.0) mmol/L Chloride (98-107) mmol/L Carbon Dioxide 4 L* 6 L* (22-30) mmol/L BUN 39 H 37 H (9-20) mg/dL Creatinine 1.7 H 1.6 H (0.8-1.5) mg/dL Glucose 455 H 371 H (75-100) mg/dL POC Glucose (70-105) Hemoglobin A1c (4-6) % Lactic Acid (0.7-2.0) mmol/L Calcium 8.0 L 8.0 L (8.4-10.2) mg/dL Phosphorus 7.90 H D (2.5-4.5) mg/dL Magnesium (1.7-2.3) mg/dL Albumin (3.9-5) g/dL 04/14/20 04/14/20 04/14/20 Range/Units 20:27 21:53 22:37 WBC (4.5-11.0) K/mm3 Hct (35.5-45.6) % MCV (84-94) fl RDW (13.2-15.2) % Lymph % (Auto) (13.4-35.0) % Perry % (Auto) (0.0-7.3) % Lymph # (1.2-5.4) K/mm3 Perry # (0.0-0.8) K/mm3 Seg Neutrophils % (40.0-70.0) % Seg Neuts % (Manual) (40.0-70.0) % Lymphocytes % (Manual) (13.4-35.0) % Seg Neutrophils # (1.8-7.7) K/mm3 Seg Neutrophils # Man (1.8-7.7) K/mm3 Lymphocytes # (Manual) (1.2-5.4) K/mm3 INR (0.87-1.13) APTT (24.2-36.6) Sec. VBG pH (7.320-7.420) Sodium (137-145) mmol/L Potassium (3.6-5.0) mmol/L Chloride (98-107) mmol/L Carbon Dioxide 11 L (22-30) mmol/L BUN 34 H (9-20) mg/dL Creatinine (0.8-1.5) mg/dL Glucose 226 H (75-100) mg/dL POC Glucose 307 H 273 H (70-105) Hemoglobin A1c (4-6) % Lactic Acid (0.7-2.0) mmol/L Calcium 8.3 L (8.4-10.2) mg/dL Phosphorus (2.5-4.5) mg/dL Magnesium (1.7-2.3) mg/dL Albumin (3.9-5) g/dL 04/14/20 04/15/20 04/15/20 Range/Units 23:19 00:19 01:21 WBC (4.5-11.0) K/mm3 Hct (35.5-45.6) % MCV (84-94) fl RDW (13.2-15.2) % Lymph % (Auto) (13.4-35.0) % Perry % (Auto) (0.0-7.3) % Lymph # (1.2-5.4) K/mm3 Perry # (0.0-0.8) K/mm3 Seg Neutrophils % (40.0-70.0) % Seg Neuts % (Manual) (40.0-70.0) % Lymphocytes % (Manual) (13.4-35.0) % Seg Neutrophils # (1.8-7.7) K/mm3 Seg Neutrophils # Man (1.8-7.7) K/mm3 Lymphocytes # (Manual) (1.2-5.4) K/mm3 INR (0.87-1.13) APTT (24.2-36.6) Sec. VBG pH (7.320-7.420) Sodium (137-145) mmol/L Potassium (3.6-5.0) mmol/L Chloride (98-107) mmol/L Carbon Dioxide (22-30) mmol/L BUN (9-20) mg/dL Creatinine (0.8-1.5) mg/dL Glucose (75-100) mg/dL POC Glucose 244 H 174 H 184 H (70-105) Hemoglobin A1c (4-6) % Lactic Acid (0.7-2.0) mmol/L Calcium (8.4-10.2) mg/dL Phosphorus (2.5-4.5) mg/dL Magnesium (1.7-2.3) mg/dL Albumin (3.9-5) g/dL 04/15/20 04/15/20 04/15/20 Range/Units 01:26 02:09 03:14 WBC (4.5-11.0) K/mm3 Hct (35.5-45.6) % MCV (84-94) fl RDW (13.2-15.2) % Lymph % (Auto) (13.4-35.0) % Perry % (Auto) (0.0-7.3) % Lymph # (1.2-5.4) K/mm3 Perry # (0.0-0.8) K/mm3 Seg Neutrophils % (40.0-70.0) % Seg Neuts % (Manual) (40.0-70.0) % Lymphocytes % (Manual) (13.4-35.0) % Seg Neutrophils # (1.8-7.7) K/mm3 Seg Neutrophils # Man (1.8-7.7) K/mm3 Lymphocytes # (Manual) (1.2-5.4) K/mm3 INR (0.87-1.13) APTT (24.2-36.6) Sec. VBG pH (7.320-7.420) Sodium (137-145) mmol/L Potassium (3.6-5.0) mmol/L Chloride (98-107) mmol/L Carbon Dioxide 14 L (22-30) mmol/L BUN 31 H (9-20) mg/dL Creatinine (0.8-1.5) mg/dL Glucose 177 H (75-100) mg/dL POC Glucose 189 H 153 H (70-105) Hemoglobin A1c (4-6) % Lactic Acid (0.7-2.0) mmol/L Calcium 8.0 L (8.4-10.2) mg/dL Phosphorus (2.5-4.5) mg/dL Magnesium (1.7-2.3) mg/dL Albumin (3.9-5) g/dL 04/15/20 04/15/20 04/15/20 Range/Units 04:09 04:21 04:21 WBC 15.8 H (4.5-11.0) K/mm3 Hct (35.5-45.6) % MCV (84-94) fl RDW (13.2-15.2) % Lymph % (Auto) 5.0 L (13.4-35.0) % Perry % (Auto) 7.4 H (0.0-7.3) % Lymph # 0.8 L (1.2-5.4) K/mm3 Perry # 1.2 H (0.0-0.8) K/mm3 Seg Neutrophils % 86.7 H (40.0-70.0) % Seg Neuts % (Manual) (40.0-70.0) % Lymphocytes % (Manual) (13.4-35.0) % Seg Neutrophils # 13.7 H (1.8-7.7) K/mm3 Seg Neutrophils # Man (1.8-7.7) K/mm3 Lymphocytes # (Manual) (1.2-5.4) K/mm3 INR (0.87-1.13) APTT (24.2-36.6) Sec. VBG pH (7.320-7.420) Sodium (137-145) mmol/L Potassium (3.6-5.0) mmol/L Chloride (98-107) mmol/L Carbon Dioxide 18 L (22-30) mmol/L BUN 27 H (9-20) mg/dL Creatinine (0.8-1.5) mg/dL Glucose 110 H (75-100) mg/dL POC Glucose 117 H (70-105) Hemoglobin A1c (4-6) % Lactic Acid (0.7-2.0) mmol/L Calcium (8.4-10.2) mg/dL Phosphorus (2.5-4.5) mg/dL Magnesium (1.7-2.3) mg/dL Albumin 3.7 L (3.9-5) g/dL 04/15/20 04/15/20 04/15/20 Range/Units 04:21 05:23 05:35 WBC (4.5-11.0) K/mm3 Hct (35.5-45.6) % MCV (84-94) fl RDW (13.2-15.2) % Lymph % (Auto) (13.4-35.0) % Perry % (Auto) (0.0-7.3) % Lymph # (1.2-5.4) K/mm3 Perry # (0.0-0.8) K/mm3 Seg Neutrophils % (40.0-70.0) % Seg Neuts % (Manual) (40.0-70.0) % Lymphocytes % (Manual) (13.4-35.0) % Seg Neutrophils # (1.8-7.7) K/mm3 Seg Neutrophils # Man (1.8-7.7) K/mm3 Lymphocytes # (Manual) (1.2-5.4) K/mm3 INR (0.87-1.13) APTT (24.2-36.6) Sec. VBG pH (7.320-7.420) Sodium (137-145) mmol/L Potassium (3.6-5.0) mmol/L Chloride (98-107) mmol/L Carbon Dioxide 17 L 16 L (22-30) mmol/L BUN 27 H 28 H (9-20) mg/dL Creatinine (0.8-1.5) mg/dL Glucose 123 H 120 H (75-100) mg/dL POC Glucose 117 H (70-105) Hemoglobin A1c (4-6) % Lactic Acid (0.7-2.0) mmol/L Calcium 8.3 L 8.3 L (8.4-10.2) mg/dL Phosphorus (2.5-4.5) mg/dL Magnesium (1.7-2.3) mg/dL Albumin (3.9-5) g/dL 20/20 Range/Units 06:18 WBC (4.5-11.0) K/mm3 Hct (35.5-45.6) % MCV (84-94) fl RDW (13.2-15.2) % Lymph % (Auto) (13.4-35.0) % Perry % (Auto) (0.0-7.3) % Lymph # (1.2-5.4) K/mm3 Perry # (0.0-0.8) K/mm3 Seg Neutrophils % (40.0-70.0) % Seg Neuts % (Manual) (40.0-70.0) % Lymphocytes % (Manual) (13.4-35.0) % Seg Neutrophils # (1.8-7.7) K/mm3 Seg Neutrophils # Man (1.8-7.7) K/mm3 Lymphocytes # (Manual) (1.2-5.4) K/mm3 INR (0.87-1.13) APTT (24.2-36.6) Sec. VBG pH (7.320-7.420) Sodium (137-145) mmol/L Potassium (3.6-5.0) mmol/L Chloride (98-107) mmol/L Carbon Dioxide (22-30) mmol/L BUN (9-20) mg/dL Creatinine (0.8-1.5) mg/dL Glucose (75-100) mg/dL POC Glucose 114 H (70-105) Hemoglobin A1c (4-6) % Lactic Acid (0.7-2.0) mmol/L Calcium (8.4-10.2) mg/dL Phosphorus (2.5-4.5) mg/dL Magnesium (1.7-2.3) mg/dL Albumin (3.9-5) g/dL Assessment and Plan 54 y/o male with known Diabetes and HTN. 1. Not ready for long acting sub Q insulin, continue insulin drip 2. Continue NPO status 3. Agree with current IV fluid therapy 4. Stopped HCTZ, patient was already having nausea and vomiting, don't want to risk worsening volume depletion. CCT 31 minutes.
[2020-04-15] MEDS ORDERED: INSULIN REGULAR, HUMAN 100 UNITS in SODIUM CHLORIDE 0.9% 99 ML IV SCH (19:00)
[2020-04-15 19:28] LABS: BUN/Creatinine Ratio 17; Blood Urea Nitrogen 15 mg/dL (9-20); Calcium 8.4 mg/dL (8.4-10.2); Hemolysis Index 10
[2020-04-15] MEDS: PROMETHAZINE 25 MG RECT SUPP PR PRN (20:42)
[2020-04-16] MEDS: D5W/0.45% NACL/KCL 20 MEQ 20 MEQ/1,000 ML BAG IV SCH ×2 (00:36→08:53)
[2020-04-16 01:13] LABS: BUN/Creatinine Ratio 12; Blood Urea Nitrogen 11 mg/dL (9-20); Calcium 8.4 mg/dL (8.4-10.2); Hemolysis Index 4
[2020-04-16] MEDS: PROMETHAZINE 25 MG RECT SUPP PR PRN ×2 (02:30→12:57)
[2020-04-16] MEDS: METOCLOPRAMIDE 10 MG/2 ML INJ IV PRN ×2 (05:27→16:05)
[2020-04-16 06:51] LABS: BUN/Creatinine Ratio 11; Blood Urea Nitrogen 9 mg/dL (9-20); Calcium 8.6 mg/dL (8.4-10.2); Hemolysis Index 9
--- NOTE | 2020-04-16 08:58 | Progress Note ---
Assessment and Plan 54 y/o male with known Diabetes and HTN. 1. Not ready for long acting sub Q insulin, continue insulin drip as he is still acidotic. 2. Continue NPO status 3. Agree with current IV fluid therapy 4. Stopped HCTZ, patient was already having nausea and vomiting, don't want to risk worsening volume depletion. 5. Repeat CBC tomorrow CCT 31 minutes. Subjective Date of service: 04/16/20 Interval history: No acute events. Anion Gap is still not closed. Objective - Constitutional Vitals: Vital Signs - 12hr 04/15/20 04/15/20 04/15/20 21:00 22:00 22:38 Temperature Pulse Rate 65 60 61 Respiratory 13 21 20 Rate Blood Pressure 154/137 154/137 130/61 O2 Sat by Pulse 100 100 99 Oximetry 04/15/20 04/15/20 04/16/20 23:00 23:06 00:00 Temperature Pulse Rate 66 61 61 Respiratory 11 L 19 17 Rate Blood Pressure 129/64 123/49 130/61 O2 Sat by Pulse 98 99 100 Oximetry 04/16/20 04/16/20 04/16/20 01:00 02:00 03:00 Temperature Pulse Rate 66 59 L 61 Respiratory 18 15 23 Rate Blood Pressure 123/49 130/55 120/49 O2 Sat by Pulse 99 100 100 Oximetry 04/16/20 04/16/20 04/16/20 04:00 05:00 06:00 Temperature 98.3 F Pulse Rate 56 L 58 L 59 L Respiratory 19 16 19 Rate Blood Pressure 125/51 170/122 140/61 O2 Sat by Pulse 100 99 100 Oximetry 04/16/20 04/16/20 07:00 08:00 Temperature 98.1 F Pulse Rate 57 L Respiratory 18 Rate Blood Pressure 155/65 O2 Sat by Pulse 100 Oximetry - Labs CBC & Chem 7: 04/15/20 04:21 04/16/20 06:06 Labs: Abnormal lab results 04/15/20 04/15/20 04/15/20 Range/Units 09:28 10:20 11:18 Potassium (3.6-5.0) mmol/L Carbon Dioxide (22-30) mmol/L Glucose (75-100) mg/dL POC Glucose 122 H 148 H 153 H (70-105) Coronavirus (PCR) (Negative) 06/04/15/20 04/15/20 Range/Units 12:37 13:50 15:16 Potassium (3.6-5.0) mmol/L Carbon Dioxide (22-30) mmol/L Glucose (75-100) mg/dL POC Glucose 145 H 157 H 169 H (70-105) Coronavirus (PCR) (Negative) 04/15/20 04/15/20 04/15/20 Range/Units 16:17 17:36 18:45 Potassium 3.5 L (3.6-5.0) mmol/L Carbon Dioxide 19 L (22-30) mmol/L Glucose 131 H (75-100) mg/dL POC Glucose 190 H 193 H (70-105) Coronavirus (PCR) (Negative) 04/15/20 04/15/20 04/15/20 Range/Units 18:45 19:44 20:46 Potassium (3.6-5.0) mmol/L Carbon Dioxide (22-30) mmol/L Glucose (75-100) mg/dL POC Glucose 155 H 132 H 126 H (70-105) Coronavirus (PCR) (Negative) 04/15/20 04/15/20 04/15/20 Range/Units 21:56 22:40 23:51 Potassium (3.6-5.0) mmol/L Carbon Dioxide (22-30) mmol/L Glucose (75-100) mg/dL POC Glucose 147 H 140 H 149 H (70-105) Coronavirus (PCR) (Negative) 04/15/20 04/16/20 04/16/20 Range/Units Unknown 00:40 00:50 Potassium (3.6-5.0) mmol/L Carbon Dioxide 18 L (22-30) mmol/L Glucose 165 H (75-100) mg/dL POC Glucose 155 H (70-105) Coronavirus (PCR) Positive A (Negative) 04/16/20 04/16/20 04/16/20 Range/Units 01:45 02:50 04:22 Potassium (3.6-5.0) mmol/L Carbon Dioxide (22-30) mmol/L Glucose (75-100) mg/dL POC Glucose 181 H 156 H 116 H (70-105) Coronavirus (PCR) (Negative) 04/16/20 04/16/20 04/16/20 Range/Units 05:18 06:06 06:56 Potassium 3.5 L (3.6-5.0) mmol/L Carbon Dioxide 18 L (22-30) mmol/L Glucose 149 H (75-100) mg/dL POC Glucose 132 H 173 H (70-105) Coronavirus (PCR) (Negative) 04/16/20 Range/Units 08:16 Potassium (3.6-5.0) mmol/L Carbon Dioxide (22-30) mmol/L Glucose (75-100) mg/dL POC Glucose 133 H (70-105) Coronavirus (PCR) (Negative) Medications & Allergies - Medications Allergies/Adverse Reactions: Allergies No Known Allergies Allergy (Verified 10/22/14 23:31) Home Medications: Home Medications Medication Instructions Recorded Confirmed Last Taken Type Lisinopril/Hydrochlorothiazide 1 tab PO QDAY 10/23/14 04/14/20 10/22/14 History [Zestoretic 10-12.5 mg] Insulin NPH Hum/Reg Insulin Hm 30 units SQ BID 04/14/20 04/14/20 Unknown History [Novolin 70-30 Flexpen] Active Medications: Generic Name Dose Route Start Last Admin Trade Name Freq PRN Reason Stop Dose Admin Acetaminophen 650 mg 04/14/20 21:16 Tylenol PO Q4H PRN Pain MILD(1-3)/Fever >100.5/GUTIÉRREZ Dextrose 0 ml 04/14/20 21:19 D50w (25gm) Syringe IV Q30MIN PRN Hypoglycemia Protocol Famotidine 20 mg 04/14/20 22:00 04/15/20 21:32 Pepcid IV 20 mg BID GAYLE Administration Potassium Chloride/Dextrose/Sod Cl 20 meq in 1,000 mls @ 125 mls/hr 04/14/20 07:30 04/16/20 08:53 D5w/0.45% Nacl/Kcl 20 Meq IV 125 mls/hr DIRECT GAYLE Administration Ceftriaxone Sodium 2 gm in 100 mls @ 200 mls/hr 04/15/20 10:00 04/15/20 10:10 Rocephin/Ns 2 Gm/100 Ml IV 200 mls/hr Q24HR GAYLE Administration Protocol Insulin Human Regular 100 100 mls @ 1 mls/hr 04/15/20 19:00 04/16/20 08:00 units/ Sodium Chloride IV 3 units/hr TITR GAYLE 3 mls/hr Administration Protocol 1 UNITS/HR Lisinopril 10 mg 04/15/20 10:00 04/15/20 11:09 Zestril PO 10 mg QDAY GAYLE Administration Metoclopramide HCl 10 mg 04/14/20 21:16 04/16/20 05:27 Reglan IV 10 mg Q6H PRN Administration Nausea And Vomiting Ondansetron HCl 4 mg 04/14/20 21:16 04/15/20 18:49 Zofran IV 4 mg Q8H PRN Administration Nausea And Vomiting Oxycodone/Acetaminophen 1 tab 04/14/20 21:16 Percocet 5/325 PO Q6H PRN Pain, Moderate (4-6) Promethazine HCl 25 mg 04/15/20 20:15 04/16/20 02:30 Phenergan ID 25 mg Q6H PRN Administration Nausea And Vomiting Sodium Chloride 10 ml 04/14/20 22:00 04/15/20 21:33 Sodium Chloride Flush Syringe 10 Ml IV 10 ml BID GAYLE Administration Sodium Chloride 10 ml 04/14/20 21:16 Sodium Chloride Flush Syringe 10 Ml IV PRN PRN LINE FLUSH HEART Score - HEART Score Troponin: Troponin T < 0.010 ng/mL (0.00-0.029) 04/14/20 13:02
[2020-04-16] MEDS: FAMOTIDINE 20 MG/2 ML INJ IV SCH ×2 (09:03→21:54)
[2020-04-16] MEDS: cefTRIAXone/NS 2 GM/100 ML 2 GM/100 ML BAG IV SCH (09:03)
[2020-04-16] MEDS: LISINOPRIL 10 MG TAB PO SCH (09:04)
[2020-04-16] MEDS: ONDANSETRON 4 MG/2 ML INJ IV PRN ×2 (09:33→21:16)
[2020-04-16 15:47] LABS: BUN/Creatinine Ratio 10; Blood Urea Nitrogen 7 mg/dL (9-20); Calcium 8.6 mg/dL (8.4-10.2); Hemolysis Index 6
[2020-04-16] MEDS ORDERED: POTASSIUM CHLORIDE ER 20 MEQ TAB PO ONE (17:30)
[2020-04-16] MEDS: INSULIN LISPRO 100 UNIT/ML SUB-Q SCH ×2 (18:13→21:53)
--- NOTE | 2020-04-16 18:31 | Progress Note ---
Assessment and Plan The high probability OF a clinically significant sudden or life-threatening deterioration of the cardiorespiratory system and endocrine system required my full and direct attention, intervention and postoperative management. The aggregate critical care time was 32 minutes. The time is in addition to time spent performing reported procedures but includes the followin: Data review and interpretation 2: Patient assessment and monitoring of vital signs 3: Documentation 4:: Medication orders and management - Patient Problems (1) DKA (diabetic ketoacidosis) Current Visit: Yes Status: Acute Qualifiers: Diabetes mellitus type: type 1 Diabetes mellitus complication detail: without coma Qualified Code(s): E10.10 - Type 1 diabetes mellitus with ketoacidosis without coma Plan to address problem: DKA protocol IV insulin IV fluids in the form of normal saline followed by D5 normal saline Potassium supplementation if necessary Check hemoglobin A1c Diet dietitian consult Critical care consult Improved Transfer to [facility] floor per Dr Walters (2) Hypertension Current Visit: No Status: Chronic Qualifiers: Hypertension type: essential hypertension Qualified Code(s): I10 - Essential (primary) hypertension Plan to address problem: Continue antihypertensives (3) Hyponatremia Current Visit: Yes Status: Acute Plan to address problem: Should correct with correction of blood glucose IV normal saline for now (4) Hyperkalemia Current Visit: Yes Status: Acute Plan to address problem: Should correct with correction of blood glucose Calcium gluconate if necessary (5) Metabolic acidosis Current Visit: Yes Status: Acute Plan to address problem: Severe Bicarb drip if necessary Should correct with correction of blood glucose (6) Leukocytosis Current Visit: Yes Status: Acute Qualifiers: Leukocytosis type: unspecified Qualified Code(s): D72.829 - Elevated white blood cell count, unspecified Plan to address problem: Probably demargination IV ceftriaxone empirically (7) SIRS (systemic inflammatory response syndrome) Current Visit: Yes Status: Acute Plan to address problem: clinical picture consistent with Sirs Patient has leukocytosis, elevated lactic acid, tachycardia and tachypnea (8) DVT prophylaxis Current Visit: No Status: Acute Plan to address problem: Patient initiated on heparin and GI prophylaxis (9) Suspected COVID-19 virus infection Current Visit: Yes Status: Inactive Plan to address problem: Patient apparently tested 2 -months ago in the shelter He works for shelter Patient was asymptomatic Chest x-ray is normal this time Little virus test came positive Asymptomatic carrier ID to be consulted Subjective Date of service: 04/16/20 Principal diagnosis: DKA Interval history: 54-year-old male with history of diabetes and HTN presents to ED with nausea, vomiting, shortness of breath. Patient states symptoms began yesterday. States he was vomiting throughout the night X7 to 10 times.. Patient states he took some medication to help with his nausea, which is currently improved, however he is complaining of bilateral flank pain at this time. He denies any abdominal pain, urinary frequency, and hematuria. Patient states he feels dehydrated at this time. Patient tested positive for little virus approximately 1 month ago. 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 Patient tested positive, but states he was asymptomatic. Patient denies ever having fever or cough. He denies chest pain, leg pain or swelling. No exacerbating or relieving factors.Took his Insulin as prescribed. Still nauseous No vomiting Objective - Constitutional Vitals: Vital Signs - 12hr 04/16/20 04/16/20 04/16/20 07:00 08:00 09:00 Temperature 98.1 F Pulse Rate 57 L 57 L 56 L Respiratory 18 13 15 Rate Respiratory Rate [Bilateral Flank] Respiratory Rate [Chest] Blood Pressure 155/65 129/66 127/53 O2 Sat by Pulse 100 100 100 Oximetry 04/16/20 04/16/20 04/16/20 09:04 10:00 11:00 Temperature Pulse Rate 68 50 L 72 Respiratory 12 18 Rate Respiratory 16 Rate [Bilateral Flank] Respiratory 16 Rate [Chest] Blood Pressure 129/66 132/63 132/63 O2 Sat by Pulse 100 99 Oximetry 04/16/20 04/16/20 04/16/20 11:50 12:00 13:00 Temperature Pulse Rate 55 L 58 L Respiratory 18 19 18 Rate Respiratory Rate [Bilateral Flank] Respiratory Rate [Chest] Blood Pressure 135/55 144/62 O2 Sat by Pulse 99 99 100 Oximetry 04/16/20 04/16/20 04/16/20 14:00 15:00 16:00 Temperature Pulse Rate 50 L 61 54 L Respiratory 17 17 11 L Rate Respiratory Rate [Bilateral Flank] Respiratory Rate [Chest] Blood Pressure 147/62 147/62 147/62 O2 Sat by Pulse 99 100 100 Oximetry 04/16/20 04/16/20 17:00 18:00 Temperature Pulse Rate 50 L 57 L Respiratory 17 15 Rate Respiratory Rate [Bilateral Flank] Respiratory Rate [Chest] Blood Pressure 157/125 146/62 O2 Sat by Pulse 99 100 Oximetry General appearance: Present: no acute distress, well-nourished - EENT Eyes: PERRL, EOM intact ENT: hearing intact, clear oral mucosa Ears: bilateral: normal - Neck Neck: supple, normal ROM - Respiratory Respiratory effort: normal Respiratory: bilateral: CTA - Breasts Breasts: normal - Cardiovascular Rhythm: regular Heart Sounds: Present: S1 & S2. Absent: gallop, rub Extremities: pulses intact, No edema, normal color, Full ROM - Gastrointestinal General gastrointestinal: Present: soft, non-tender, non-distended, normal bowel sounds - Genitourinary Male genitourinary: normal - Integumentary Integumentary: clear, warm, dry - Musculoskeletal Musculoskeletal: 1, strength equal bilaterally - Neurologic Neurologic: moves all extremities - Psychiatric Psychiatric: memory intact, appropriate mood/affect, intact judgment & insight - Labs CBC & Chem 7: 04/15/20 04:21 04/18/20 04:59 Labs: Abnormal lab results 04/15/20 04/15/20 04/15/20 Range/Units 18:45 18:45 19:44 Potassium 3.5 L (3.6-5.0) mmol/L Carbon Dioxide 19 L (22-30) mmol/L BUN (9-20) mg/dL Creatinine (0.8-1.5) mg/dL Glucose 131 H (75-100) mg/dL POC Glucose 155 H 132 H (70-105) 04/15/20 04/15/20 04/15/20 Range/Units 20:46 21:56 22:40 Potassium (3.6-5.0) mmol/L Carbon Dioxide (22-30) mmol/L BUN (9-20) mg/dL Creatinine (0.8-1.5) mg/dL Glucose (75-100) mg/dL POC Glucose 126 H 147 H 140 H (70-105) 04/15/20 04/16/20 04/16/20 Range/Units 23:51 00:40 00:50 Potassium (3.6-5.0) mmol/L Carbon Dioxide 18 L (22-30) mmol/L BUN (9-20) mg/dL Creatinine (0.8-1.5) mg/dL Glucose 165 H (75-100) mg/dL POC Glucose 149 H 155 H (70-105) 04/16/20 04/16/20 04/16/20 Range/Units 01:45 02:50 04:22 Potassium (3.6-5.0) mmol/L Carbon Dioxide (22-30) mmol/L BUN (9-20) mg/dL Creatinine (0.8-1.5) mg/dL Glucose (75-100) mg/dL POC Glucose 181 H 156 H 116 H (70-105) 04/16/20 04/16/20 04/16/20 Range/Units 05:18 06:06 06:56 Potassium 3.5 L (3.6-5.0) mmol/L Carbon Dioxide 18 L (22-30) mmol/L BUN (9-20) mg/dL Creatinine (0.8-1.5) mg/dL Glucose 149 H (75-100) mg/dL POC Glucose 132 H 173 H (70-105) 04/16/20 04/16/20 04/16/20 Range/Units 08:16 09:49 10:30 Potassium (3.6-5.0) mmol/L Carbon Dioxide (22-30) mmol/L BUN (9-20) mg/dL Creatinine (0.8-1.5) mg/dL Glucose (75-100) mg/dL POC Glucose 133 H 120 H 139 H (70-105) 04/16/20 04/16/20 04/16/20 Range/Units 11:44 12:44 13:47 Potassium (3.6-5.0) mmol/L Carbon Dioxide (22-30) mmol/L BUN (9-20) mg/dL Creatinine (0.8-1.5) mg/dL Glucose (75-100) mg/dL POC Glucose 147 H 153 H 149 H (70-105) 04/16/20 04/16/20 04/16/20 Range/Units 14:54 15:09 15:52 Potassium 3.3 L (3.6-5.0) mmol/L Carbon Dioxide (22-30) mmol/L BUN 7 L (9-20) mg/dL Creatinine 0.7 L (0.8-1.5) mg/dL Glucose 154 H (75-100) mg/dL POC Glucose 161 H 143 H (70-105) 04/16/20 04/16/20 Range/Units 16:57 18:15 Potassium (3.6-5.0) mmol/L Carbon Dioxide (22-30) mmol/L BUN (9-20) mg/dL Creatinine (0.8-1.5) mg/dL Glucose (75-100) mg/dL POC Glucose 148 H 151 H (70-105) HEART Score - HEART Score Troponin: Troponin T < 0.010 ng/mL (0.00-0.029) 04/14/20 13:02
[2020-04-16 20:38] LABS: BUN/Creatinine Ratio 10; Blood Urea Nitrogen 7 mg/dL (9-20); Calcium 8.7 mg/dL (8.4-10.2); Hemolysis Index 5
[2020-04-16] MEDS: INSULIN NPH/REGULAR 70/30 INJ SUB-Q SCH (21:53)
[2020-04-17] MEDS: PROMETHAZINE 25 MG RECT SUPP PR PRN ×3 (00:18→17:16)
[2020-04-17 01:22] LABS: BUN/Creatinine Ratio 13; Blood Urea Nitrogen 9 mg/dL (9-20); Calcium 8.8 mg/dL (8.4-10.2); Hemolysis Index 4
[2020-04-17] MEDS: INSULIN LISPRO 100 UNIT/ML SUB-Q SCH ×5 (02:25→22:43)
[2020-04-17] MEDS: METOCLOPRAMIDE 10 MG/2 ML INJ IV PRN ×2 (04:21→20:29)
[2020-04-17 06:10] LABS: BUN/Creatinine Ratio 13; Blood Urea Nitrogen 8 mg/dL (9-20); Calcium 8.4 mg/dL (8.4-10.2); Hemolysis Index 7
[2020-04-17] MEDS: ONDANSETRON 4 MG/2 ML INJ IV PRN (07:30)
[2020-04-17] MEDS: INSULIN NPH/REGULAR 70/30 INJ SUB-Q SCH ×2 (09:05→17:06)
[2020-04-17] MEDS: FAMOTIDINE 20 MG/2 ML INJ IV SCH (09:30)
[2020-04-17] MEDS: LISINOPRIL 10 MG TAB PO SCH (09:30)
[2020-04-17] MEDS: cefTRIAXone/NS 2 GM/100 ML 2 GM/100 ML BAG IV SCH (09:31)
[2020-04-17] MEDS: FAMOTIDINE 20 MG TAB PO SCH ×3 (10:39→22:00)
[2020-04-17] MEDS ORDERED: INSULIN LISPRO 100 UNIT/ML SUB-Q SCH (11:30)
[2020-04-17] MEDS: D5W/0.45% NACL/KCL 20 MEQ 20 MEQ/1,000 ML BAG IV SCH ×2 (11:44→20:28)
--- NOTE | 2020-04-17 12:38 | Progress Note ---
Assessment and Plan 54 y/o male with known Diabetes and HTN and COVID positive 1. No objection to transfer to floor. 2. Suggest advancing diet 3. Can stop IVF's once appetite is better. 4. Consider restarting all BP meds when primary ready. 5. Repeat CBC tomorrow, not done. Defer to primary to follow up. Need to speak with ID about this case. Patient remains asymptomatic but per him, he has been in quarantine since his diagnosis 2 months ago. He also denies going back to work. His test came back positive and I do not know how to advise him at this point. Maybe they can help with what the next steps should be. CCT 31 minutes. Subjective Date of service: 04/17/20 Interval history: Off drip. Tolerating clear liquid diet. Objective - Constitutional Vitals: Vital Signs - 12hr 04/17/20 04/17/20 04/17/20 01:00 02:00 03:00 Temperature Pulse Rate 53 L 55 L 57 L Pulse Rate [ From Monitor] Respiratory 19 19 13 Rate Blood Pressure 151/52 145/49 155/56 O2 Sat by Pulse 99 99 100 Oximetry 04/17/20 04/17/20 04/17/20 03:34 04:00 05:00 Temperature 99 F Pulse Rate 56 L 62 Pulse Rate [ 57 L From Monitor] Respiratory 18 20 Rate Blood Pressure 152/62 152/62 O2 Sat by Pulse 99 99 Oximetry 04/17/20 04/17/20 04/17/20 06:00 07:01 08:00 Temperature 99.0 F Pulse Rate 54 L 53 L 54 L Pulse Rate [ From Monitor] Respiratory 18 15 15 Rate Blood Pressure 121/64 109/61 121/76 O2 Sat by Pulse 98 100 100 Oximetry 04/17/20 04/17/20 04/17/20 09:01 09:30 10:01 Temperature Pulse Rate 68 65 58 L Pulse Rate [ From Monitor] Respiratory 11 L 14 Rate Blood Pressure 135/75 135/75 156/71 O2 Sat by Pulse 100 100 Oximetry - Labs CBC & Chem 7: 04/15/20 04:21 04/17/20 05:34 Labs: Abnormal lab results 04/16/20 04/16/20 04/16/20 Range/Units 12:44 13:47 14:54 Potassium (3.6-5.0) mmol/L BUN (9-20) mg/dL Creatinine (0.8-1.5) mg/dL Glucose (75-100) mg/dL POC Glucose 153 H 149 H 161 H (70-105) 04/16/20 04/16/20 04/16/20 Range/Units 15:09 15:52 16:57 Potassium 3.3 L (3.6-5.0) mmol/L BUN 7 L (9-20) mg/dL Creatinine 0.7 L (0.8-1.5) mg/dL Glucose 154 H (75-100) mg/dL POC Glucose 143 H 148 H (70-105) 04/16/20 04/16/20 04/16/20 Range/Units 18:15 20:03 22:04 Potassium (3.6-5.0) mmol/L BUN 7 L (9-20) mg/dL Creatinine 0.7 L (0.8-1.5) mg/dL Glucose 193 H (75-100) mg/dL POC Glucose 151 H 262 H (70-105) 04/17/20 04/17/20 04/17/20 Range/Units 00:25 01:58 05:34 Potassium 3.5 L 3.3 L (3.6-5.0) mmol/L BUN 8 L (9-20) mg/dL Creatinine 0.7 L 0.6 L (0.8-1.5) mg/dL Glucose 186 H 114 H (75-100) mg/dL POC Glucose 139 H (70-105) 04/17/20 Range/Units 10:07 Potassium (3.6-5.0) mmol/L BUN (9-20) mg/dL Creatinine (0.8-1.5) mg/dL Glucose (75-100) mg/dL POC Glucose 269 H (70-105) Medications & Allergies - Medications Allergies/Adverse Reactions: Allergies No Known Allergies Allergy (Verified 10/22/14 23:31) Home Medications: Home Medications Medication Instructions Recorded Confirmed Last Taken Type Lisinopril/Hydrochlorothiazide 1 tab PO QDAY 10/23/14 04/14/20 10/22/14 History [Zestoretic 10-12.5 mg] Insulin NPH Hum/Reg Insulin Hm 30 units SQ BID 04/14/20 04/14/20 Unknown History [Novolin 70-30 Flexpen] Active Medications: Generic Name Dose Route Start Last Admin Trade Name Freq PRN Reason Stop Dose Admin Acetaminophen 650 mg 04/14/20 21:16 Tylenol PO Q4H PRN Pain MILD(1-3)/Fever >100.5/GUTIÉRREZ Dextrose 0 ml 04/14/20 21:19 D50w (25gm) Syringe IV Q30MIN PRN Hypoglycemia Protocol Famotidine 20 mg 04/17/20 10:00 04/17/20 10:39 Pepcid PO 20 mg BID GAYLE Administration Potassium Chloride/Dextrose/Sod Cl 20 meq in 1,000 mls @ 125 mls/hr 04/14/20 07:30 04/17/20 11:44 D5w/0.45% Nacl/Kcl 20 Meq IV 125 mls/hr DIRECT GAYLE Administration Ceftriaxone Sodium 2 gm in 100 mls @ 200 mls/hr 04/15/20 10:00 04/17/20 10:10 Rocephin/Ns 2 Gm/100 Ml IV 04/19/20 10:29 Infused Q24HR GAYLE Infusion Protocol Insulin Human Isoph/Insulin Regular 30 unit 04/16/20 21:00 04/17/20 09:05 Humulin 70/30 SUB-Q 30 unit BIDDIAB GAYLE Administration Insulin Human Lispro 0 unit 04/17/20 13:00 Humalog SUB-Q Q4HR GAYLE Protocol Lisinopril 10 mg 04/15/20 10:00 04/17/20 09:30 Zestril PO 10 mg QDAY GAYLE Administration Metoclopramide HCl 10 mg 04/14/20 21:16 04/17/20 04:21 Reglan IV 10 mg Q6H PRN Administration Nausea And Vomiting Ondansetron HCl 4 mg 04/14/20 21:16 04/17/20 07:30 Zofran IV 4 mg Q8H PRN Administration Nausea And Vomiting Oxycodone/Acetaminophen 1 tab 04/14/20 21:16 Percocet 5/325 PO Q6H PRN Pain, Moderate (4-6) Promethazine HCl 25 mg 04/15/20 20:15 04/17/20 09:30 Phenergan DE 25 mg Q6H PRN Administration Nausea And Vomiting Sodium Chloride 10 ml 04/14/20 22:00 04/17/20 09:57 Sodium Chloride Flush Syringe 10 Ml IV 10 ml BID GAYLE Administration Sodium Chloride 10 ml 04/14/20 21:16 Sodium Chloride Flush Syringe 10 Ml IV PRN PRN LINE FLUSH HEART Score - HEART Score Troponin: Troponin T < 0.010 ng/mL (0.00-0.029) 04/14/20 13:02
[2020-04-17 14:42] LABS: BUN/Creatinine Ratio 14; Blood Urea Nitrogen 10 mg/dL (9-20); Calcium 8.6 mg/dL (8.4-10.2); Hemolysis Index 10
[2020-04-17 18:53] LABS: BUN/Creatinine Ratio 13; Blood Urea Nitrogen 8 mg/dL (9-20); Calcium 8.4 mg/dL (8.4-10.2); Hemolysis Index 11
--- NOTE | 2020-04-17 20:24 | Progress Note ---
Assessment and Plan The high probability OF a clinically significant sudden or life-threatening deterioration of the cardiorespiratory system and endocrine system required my full and direct attention, intervention and postoperative management. The aggregate critical care time was 32 minutes. The time is in addition to time spent performing reported procedures but includes the followin: Data review and interpretation 2: Patient assessment and monitoring of vital signs 3: Documentation 4:: Medication orders and management - Patient Problems (1) DKA (diabetic ketoacidosis) Current Visit: Yes Status: Acute Qualifiers: Diabetes mellitus type: type 1 Diabetes mellitus complication detail: without coma Qualified Code(s): E10.10 - Type 1 diabetes mellitus with ketoacidosis without coma Plan to address problem: DKA protocol IV insulin IV fluids in the form of normal saline followed by D5 normal saline Potassium supplementation if necessary Check hemoglobin A1c Diet dietitian consult Critical care consult Improved transfer to medical floor (2) Hypertension Current Visit: No Status: Chronic Qualifiers: Hypertension type: essential hypertension Qualified Code(s): I10 - Essential (primary) hypertension Plan to address problem: Continue antihypertensives (3) Hyponatremia Current Visit: Yes Status: Acute Plan to address problem: Should correct with correction of blood glucose IV normal saline for now (4) Hyperkalemia Current Visit: Yes Status: Acute Plan to address problem: Should correct with correction of blood glucose Calcium gluconate if necessary (5) Metabolic acidosis Current Visit: Yes Status: Acute Plan to address problem: Severe Bicarb drip if necessary Should correct with correction of blood glucose (6) Leukocytosis Current Visit: Yes Status: Acute Qualifiers: Leukocytosis type: unspecified Qualified Code(s): D72.829 - Elevated white blood cell count, unspecified Plan to address problem: Probably demargination IV ceftriaxone empirically (7) SIRS (systemic inflammatory response syndrome) Current Visit: Yes Status: Acute Plan to address problem: clinical picture consistent with Sirs Patient has leukocytosis, elevated lactic acid, tachycardia and tachypnea (8) DVT prophylaxis Current Visit: No Status: Acute Plan to address problem: Patient initiated on heparin and GI prophylaxis (9) Suspected COVID-19 virus infection Current Visit: Yes Status: Inactive Plan to address problem: Patient apparently tested +1-month ago in the [facility] He works for [employer] Patient was asymptomatic Chest x-ray is normal this time We will repeat the coronavirus test Isolation in the meantime No ID consult requested at admission Little virus PCR came positive Positive for 2 months. Will get ID consult Subjective Date of service: 04/17/20 Principal diagnosis: DKA Interval history: 54-year-old male with history of diabetes and HTN presents to ED with nausea, vomiting, shortness of breath. Patient states symptoms began yesterday. States he was vomiting throughout the night X7 to 10 times.. Patient states he took some medication to help with his nausea, which is currently improved, however he is complaining of bilateral flank pain at this time. He denies any abdominal pain, urinary frequency, and hematuria. Patient states he feels dehydrated at this time. Patient tested positive for little virus approximately 1 month ago. 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 Patient tested positive, but states he was asymptomatic. Patient denies ever having fever or cough. He denies chest pain, leg pain or swelling. No exacerbating or relieving factors.Took his Insulin as prescribed. Still nauseous Objective - Constitutional Vitals: Vital Signs - 12hr 04/17/20 04/17/20 04/17/20 09:01 09:30 10:01 Temperature Pulse Rate 68 65 58 L Pulse Rate [ From Monitor] Respiratory 11 L 14 Rate Blood Pressure 135/75 135/75 156/71 O2 Sat by Pulse 100 100 Oximetry 04/17/20 04/17/20 04/17/20 11:00 11:11 11:21 Temperature Pulse Rate 53 L 56 L 66 Pulse Rate [ From Monitor] Respiratory 24 16 26 H Rate Blood Pressure 156/71 162/79 162/79 O2 Sat by Pulse 100 100 100 Oximetry 04/17/20 04/17/20 04/17/20 11:31 11:41 12:00 Temperature Pulse Rate 69 55 L 56 L Pulse Rate [ 56 L From Monitor] Respiratory 15 14 17 Rate Blood Pressure 162/79 162/79 O2 Sat by Pulse 100 100 100 Oximetry 04/17/20 04/17/20 12:47 16:14 Temperature 99.4 F 99.6 F Pulse Rate 57 L 60 Pulse Rate [ From Monitor] Respiratory 20 16 Rate Blood Pressure 156/74 153/76 O2 Sat by Pulse 99 99 Oximetry General appearance: Present: no acute distress, well-nourished - EENT Eyes: PERRL, EOM intact ENT: hearing intact, clear oral mucosa Ears: bilateral: normal - Neck Neck: supple, normal ROM - Respiratory Respiratory effort: normal Respiratory: bilateral: CTA - Breasts Breasts: normal - Cardiovascular Rhythm: regular Heart Sounds: Present: S1 & S2. Absent: gallop, rub Extremities: pulses intact, No edema, normal color, Full ROM - Gastrointestinal General gastrointestinal: Present: soft, non-tender, non-distended, normal bowel sounds - Genitourinary Male genitourinary: normal - Integumentary Integumentary: clear, warm, dry - Musculoskeletal Musculoskeletal: 1, strength equal bilaterally - Neurologic Neurologic: moves all extremities - Psychiatric Psychiatric: memory intact, appropriate mood/affect, intact judgment & insight - Labs CBC & Chem 7: 04/15/20 04:21 04/18/20 04:59 Labs: Abnormal lab results 04/16/20 04/16/20 04/17/20 Range/Units 20:03 22:04 00:25 Potassium 3.5 L (3.6-5.0) mmol/L BUN 7 L (9-20) mg/dL Creatinine 0.7 L 0.7 L (0.8-1.5) mg/dL Glucose 193 H 186 H (75-100) mg/dL POC Glucose 262 H (70-105) 04/17/20 04/17/20 04/17/20 Range/Units 01:58 05:34 10:07 Potassium 3.3 L (3.6-5.0) mmol/L BUN 8 L (9-20) mg/dL Creatinine 0.6 L (0.8-1.5) mg/dL Glucose 114 H (75-100) mg/dL POC Glucose 139 H 269 H (70-105) 04/17/20 04/17/20 04/17/20 Range/Units 13:29 13:44 17:18 Potassium (3.6-5.0) mmol/L BUN (9-20) mg/dL Creatinine 0.7 L (0.8-1.5) mg/dL Glucose 146 H (75-100) mg/dL POC Glucose 134 H 144 H (70-105) 04/17/20 Range/Units 18:25 Potassium 3.2 L (3.6-5.0) mmol/L BUN 8 L (9-20) mg/dL Creatinine 0.6 L (0.8-1.5) mg/dL Glucose 165 H (75-100) mg/dL POC Glucose (70-105) HEART Score - HEART Score Troponin: Troponin T < 0.010 ng/mL (0.00-0.029) 04/14/20 13:02
[2020-04-18 01:13] LABS: BUN/Creatinine Ratio 10; Blood Urea Nitrogen 7 mg/dL (9-20); Calcium 8.7 mg/dL (8.4-10.2); Hemolysis Index 9
[2020-04-18] MEDS: INSULIN LISPRO 100 UNIT/ML SUB-Q SCH ×6 (02:42→22:57)
[2020-04-18] MEDS: METOCLOPRAMIDE 10 MG/2 ML INJ IV PRN ×2 (02:51→10:55)
[2020-04-18 05:50] LABS: BUN/Creatinine Ratio 10; Blood Urea Nitrogen 7 mg/dL (9-20); Calcium 8.5 mg/dL (8.4-10.2); Hemolysis Index 5
[2020-04-18] MEDS: D5W/0.45% NACL/KCL 20 MEQ 20 MEQ/1,000 ML BAG IV SCH (06:28)
[2020-04-18] MEDS: INSULIN NPH/REGULAR 70/30 INJ SUB-Q SCH ×2 (08:23→17:52)
--- NOTE | 2020-04-18 08:57 | Progress Note ---
Assessment and Plan Assessment and plan: 54-year-old male with history of diabetes and HTN presents to ED with nausea, vomiting, shortness of breath. Patient states symptoms began yesterday. States he was vomiting throughout the night X7 to 10 times.. Patient states he took some medication to help with his nausea, which is currently improved, however he is complaining of bilateral flank pain at this time. He denies any abdominal pain, urinary frequency, and hematuria. Patient states he feels dehydrated at this time. Patient tested positive for myers virus approximately 1 month ago. Patient states he is a [employer] and all staff was tested. Patient tested positive, but states he was asymptomatic. Patient denies ever having fever or cough. He denies chest pain, leg pain or swelling. No exacerbating or relieving factors.Took his Insulin as prescribed. Gap closed, Transferred out of ICU * ID eval pending * CTA Ordered considering Elevated D.Dimer * Adjust sliding scale as Blood glucose still elevated * Disposition been pending CTA and also ID evaluation. It is thought that patient may just have an active genetic material nevertheless we will continue isolation precautions. Also advised patient to continue wearing his mask even on discharge. Will obtain a home O2 evaluation.. DKA status post treatment now with gap closed. DM Hypertension Hyponatremia now corrected Hypertension Hypokalemia Metabolic acidosis Leukocytosis SIRS Suspected COVID-19 virus infection DVT History Interval history: Patient seen and examined clinically stable no new acute distress still concerned about his COVID test that keeps going back positive despite it being 2 months now. Hospitalist Physical - Physical exam Narrative exam: VITAL SIGNS: Reviewed. GENERAL: The patient appears normally developed, Vital signs as documented. HEAD: No signs of head trauma. EYES: Pupils are equal. Extraocular motions intact. EARS: Hearing grossly intact. MOUTH: Oropharynx is normal. NECK: No adenopathy, no JVD. CHEST: Chest with clear breath sounds bilaterally. No wheezes, rales, or rhonchi. CARDIAC: Regular rate and rhythm. S1 and S2, without murmurs, gallops, or rubs. VASCULAR: No Edema. Peripheral pulses normal and equal in all extremities. ABDOMEN: Soft, non tender and non distended. No rebound or guarding, and no masses palpated. Bowel Sounds normal. MUSCULOSKELETAL: Good range of motion of all major joints. Extremities without clubbing, cyanosis or edema. NEUROLOGIC EXAM: Alert and oriented x 3 No focal sensory or strength deficits. Speech normal. Follows commands. PSYCHIATRIC: Mood normal. SKIN: detial exam as documented in skin assessment - Constitutional Vitals: Temp Pulse Resp BP Pulse Ox 99.3 F 64 18 141/78 98 04/18/20 04:50 04/18/20 08:00 04/18/20 04:50 04/18/20 04:50 04/18/20 04:50 General appearance: Present: no acute distress, well-nourished HEART Score - HEART Score Troponin: Troponin T < 0.010 ng/mL (0.00-0.029) 04/14/20 13:02 Results - Labs CBC & Chem 7: 04/15/20 04:21 04/18/20 09:19 Labs: Laboratory Last Values WBC 15.8 K/mm3 (4.5-11.0) H 04/15/20 04:21 RBC 4.37 M/mm3 (3.65-5.03) 04/15/20 04:21 Hgb 13.1 gm/dl (11.8-15.2) 04/15/20 04:21 Hct 38.2 % (35.5-45.6) D 04/15/20 04:21 MCV 87 fl (84-94) 04/15/20 04:21 MCH 30 pg (28-32) 04/15/20 04:21 MCHC 34 % (32-34) 04/15/20 04:21 RDW 14.2 % (13.2-15.2) 04/15/20 04:21 Plt Count 241 K/mm3 (140-440) 04/15/20 04:21 Lymph % (Auto) 5.0 % (13.4-35.0) L 04/15/20 04:21 [place] % (Auto) 7.4 % (0.0-7.3) H 04/15/20 04:21 Eos % (Auto) 0.0 % (0.0-4.3) 04/15/20 04:21 Baso % (Auto) 0.9 % (0.0-1.8) 04/15/20 04:21 Lymph # 0.8 K/mm3 (1.2-5.4) L 04/15/20 04:21 [place] # 1.2 K/mm3 (0.0-0.8) H 04/15/20 04:21 Eos # 0.0 K/mm3 (0.0-0.4) 04/15/20 04:21 Baso # 0.1 K/mm3 (0.0-0.1) 04/15/20 04:21 Add Manual Diff Complete 04/14/20 13:02 Total Counted 100 04/14/20 13:02 Seg Neutrophils % 86.7 % (40.0-70.0) H 04/15/20 04:21 Seg Neuts % (Manual) 94.0 % (40.0-70.0) H 04/14/20 13:02 Band Neutrophils % 0 % 04/14/20 13:02 Lymphocytes % (Manual) 4.0 % (13.4-35.0) L 04/14/20 13:02 Reactive Lymphs % (Man) 0 % 04/14/20 13:02 Monocytes % (Manual) 2.0 % (0.0-7.3) 04/14/20 13:02 Eosinophils % (Manual) 0 % (0.0-4.3) 04/14/20 13:02 Basophils % (Manual) 0 % (0.0-1.8) 04/14/20 13:02 Metamyelocytes % 0 % 04/14/20 13:02 Myelocytes % 0 % 04/14/20 13:02 Promyelocytes % 0 % 04/14/20 13:02 Blast Cells % 0 % 04/14/20 13:02 Nucleated RBC % Not Reportable 04/14/20 13:02 Seg Neutrophils # 13.7 K/mm3 (1.8-7.7) H 04/15/20 04:21 Seg Neutrophils # Man 19.7 K/mm3 (1.8-7.7) H 04/14/20 13:02 Band Neutrophils # 0.0 K/mm3 04/14/20 13:02 Lymphocytes # (Manual) 0.8 K/mm3 (1.2-5.4) L 04/14/20 13:02 Abs React Lymphs (Man) 0.0 K/mm3 04/14/20 13:02 Monocytes # (Manual) 0.4 K/mm3 (0.0-0.8) 04/14/20 13:02 Eosinophils # (Manual) 0.0 K/mm3 (0.0-0.4) 04/14/20 13:02 Basophils # (Manual) 0.0 K/mm3 (0.0-0.1) 04/14/20 13:02 Metamyelocytes # 0.0 K/mm3 04/14/20 13:02 Myelocytes # 0.0 K/mm3 04/14/20 13:02 Promyelocytes # 0.0 K/mm3 04/14/20 13:02 Blast Cells # 0.0 K/mm3 04/14/20 13:02 WBC Morphology Not Reportable 04/14/20 13:02 Hypersegmented Neuts Not Reportable 04/14/20 13:02 Hyposegmented Neuts Not Reportable 04/14/20 13:02 Hypogranular Neuts Not Reportable 04/14/20 13:02 Smudge Cells Not Reportable 04/14/20 13:02 Toxic Granulation Not Reportable 04/14/20 13:02 Toxic Vacuolation Not Reportable 04/14/20 13:02 Dohle Bodies Not Reportable 04/14/20 13:02 Pelger-Huet Anomaly Not Reportable 04/14/20 13:02 Oskar Rods Not Reportable 04/14/20 13:02 Platelet Estimate Consistent w auto 04/14/20 13:02 Clumped Platelets Not Reportable 04/14/20 13:02 Plt Clumps, EDTA Not Reportable 04/14/20 13:02 Large Platelets Not Reportable 04/14/20 13:02 Giant Platelets Not Reportable 04/14/20 13:02 Platelet Satelliting Not Reportable 04/14/20 13:02 Plt Morphology Comment Not Reportable 04/14/20 13:02 RBC Morphology Not Reportable 04/14/20 13:02 Dimorphic RBCs Not Reportable 04/14/20 13:02 Polychromasia Not Reportable 04/14/20 13:02 Hypochromasia Not Reportable 04/14/20 13:02 Poikilocytosis Not Reportable 04/14/20 13:02 Anisocytosis Not Reportable 04/14/20 13:02 Microcytosis Not Reportable 04/14/20 13:02 Macrocytosis Not Reportable 04/14/20 13:02 Spherocytes Not Reportable 04/14/20 13:02 Pappenheimer Bodies Not Reportable 04/14/20 13:02 Sickle Cells Not Reportable 04/14/20 13:02 Target Cells Not Reportable 04/14/20 13:02 Tear Drop Cells Not Reportable 04/14/20 13:02 Ovalocytes Not Reportable 04/14/20 13:02 Helmet Cells Not Reportable 04/14/20 13:02 [place] Bodies Not Reportable 04/14/20 13:02 [place] Rings Not Reportable 04/14/20 13:02 [place] Cells Not Reportable 04/14/20 13:02 Bite Cells Not Reportable 04/14/20 13:02 Crenated Cell Not Reportable 04/14/20 13:02 Elliptocytes Not Reportable 04/14/20 13:02 Acanthocytes (Spur) Not Reportable 04/14/20 13:02 Rouleaux Not Reportable 04/14/20 13:02 Hemoglobin C Crystals Not Reportable 04/14/20 13:02 Schistocytes Not Reportable 04/14/20 13:02 Malaria parasites Not Reportable 04/14/20 13:02 Juanjose Bodies Not Reportable 04/14/20 13:02 Hem Pathologist Commnt No 04/14/20 13:02 PT 14.6 Sec. (12.2-14.9) 04/14/20 13:02 INR 1.16 (0.87-1.13) H 04/14/20 13:02 APTT 21.9 Sec. (24.2-36.6) L 04/14/20 13:02 VBG pH 7.054 (7.320-7.420) L* 04/14/20 13:02 Sodium 140 mmol/L (137-145) 04/18/20 04:59 Potassium 3.2 mmol/L (3.6-5.0) L 04/18/20 04:59 Chloride 101.4 mmol/L (98-107) 04/18/20 04:59 Carbon Dioxide 25 mmol/L (22-30) 04/18/20 04:59 Anion Gap 17 mmol/L 04/18/20 04:59 BUN 7 mg/dL (9-20) L 04/18/20 04:59 Creatinine 0.7 mg/dL (0.8-1.5) L 04/18/20 04:59 Estimated GFR > 60 ml/min 04/18/20 04:59 BUN/Creatinine Ratio 10 % 04/18/20 04:59 Glucose 173 mg/dL (75-100) H 04/18/20 04:59 POC Glucose 145 (70-105) H 04/18/20 06:14 Hemoglobin A1c 11.0 % (4-6) H 04/14/20 13:02 Ketones Quantitative Large (Negative) 04/14/20 13:02 Lactic Acid 1.60 mmol/L (0.7-2.0) 04/14/20 18:25 Calcium 8.5 mg/dL (8.4-10.2) 04/18/20 04:59 Phosphorus 7.90 mg/dL (2.5-4.5) H D 04/14/20 19:41 Magnesium 2.20 mg/dL (1.7-2.3) 04/14/20 19:41 Total Bilirubin 0.60 mg/dL (0.1-1.2) 04/15/20 04:21 AST 20 units/L (5-40) 04/15/20 04:21 ALT 14 units/L (7-56) 04/15/20 04:21 Alkaline Phosphatase 65 units/L (35-129) 04/15/20 04:21 Troponin T < 0.010 ng/mL (0.00-0.029) 04/14/20 13:02 Total Protein 6.4 g/dL (6.3-8.2) 04/15/20 04:21 Albumin 3.7 g/dL (3.9-5) L 04/15/20 04:21 Albumin/Globulin Ratio 1.4 % 04/15/20 04:21 Urine Color Yellow (Yellow) 04/14/20 15:16 Urine Turbidity Clear (Clear) 04/14/20 15:16 Urine pH 5.0 (5.0-7.0) 04/14/20 15:16 Ur Specific [place] 1.018 (1.003-1.030) 04/14/20 15:16 Urine Protein <15 mg/dl mg/dL (Negative) 04/14/20 15:16 Urine Glucose (UA) >=500 mg/dL (Negative) 04/14/20 15:16 Urine Ketones 80 mg/dL (Negative) 04/14/20 15:16 Urine Blood Neg (Negative) 04/14/20 15:16 Urine Nitrite Neg (Negative) 04/14/20 15:16 Urine Bilirubin Neg (Negative) 04/14/20 15:16 Urine Urobilinogen < 2.0 mg/dL (<2.0) 04/14/20 15:16 Ur Leukocyte Esterase Neg (Negative) 04/14/20 15:16 Urine WBC (Auto) 2.0 /HPF (0.0-6.0) 04/14/20 15:16 Urine RBC (Auto) 1.0 /HPF (0.0-6.0) 04/14/20 15:16 Coronavirus (PCR) Positive (Negative) A 04/15/20 Unknown Microbiology: Microbiology 04/14/20 13:02 Peripheral/Venous Blood Culture - Preliminary NO GROWTH AFTER 72 HOURS 04/14/20 13:02 Peripheral/Venous Blood Culture - Preliminary NO GROWTH AFTER 72 HOURS Locke/IV: Voiding Method Toilet IV Catheter Type [Left Hand] Peripheral IV IV Catheter Type [Left INT / Saline Lock Antecubital] Active Medications - Current Medications Current Medications: Generic Name Dose Route Start Last Admin Trade Name Freq PRN Reason Stop Dose Admin Acetaminophen 650 mg 04/14/20 21:16 Tylenol PO Q4H PRN Pain MILD(1-3)/Fever >100.5/GUTIÉRREZ Dextrose 0 ml 04/14/20 21:19 D50w (25gm) Syringe IV Q30MIN PRN Hypoglycemia Protocol Famotidine 20 mg 04/17/20 10:00 04/17/20 22:00 Pepcid PO Not Given BID GAYLE Potassium Chloride/Dextrose/Sod Cl 20 meq in 1,000 mls @ 125 mls/hr 04/14/20 07:30 04/18/20 06:28 D5w/0.45% Nacl/Kcl 20 Meq IV 125 mls/hr DIRECT GAYLE Administration Ceftriaxone Sodium 2 gm in 100 mls @ 200 mls/hr 04/15/20 10:00 04/17/20 10:10 Rocephin/Ns 2 Gm/100 Ml IV 04/19/20 10:29 Infused Q24HR GYALE Infusion Protocol Insulin Human Isoph/Insulin Regular 30 unit 04/16/20 21:00 04/18/20 08:23 Humulin 70/30 SUB-Q 30 unit BIDDIAB GAYLE Administration Insulin Human Lispro 0 unit 04/17/20 13:00 04/18/20 06:08 Humalog SUB-Q Not Given Q4HR [facility] Protocol Lisinopril 10 mg 04/15/20 10:00 04/17/20 09:30 Zestril PO 10 mg QDAY GAYLE Administration Metoclopramide HCl 10 mg 04/14/20 21:16 04/18/20 02:51 Reglan IV 10 mg Q6H PRN Administration Nausea And Vomiting Ondansetron HCl 4 mg 04/14/20 21:16 04/17/20 07:30 Zofran IV 4 mg Q8H PRN Administration Nausea And Vomiting Oxycodone/Acetaminophen 1 tab 04/14/20 21:16 Percocet 5/325 PO Q6H PRN Pain, Moderate (4-6) Promethazine HCl 25 mg 04/15/20 20:15 04/17/20 17:16 Phenergan [place] 25 mg Q6H PRN Administration Nausea And Vomiting Sodium Chloride 10 ml 04/14/20 22:00 04/17/20 22:43 Sodium Chloride Flush Syringe 10 Ml IV 10 ml BID GAYLE Administration Sodium Chloride 10 ml 04/14/20 21:16 Sodium Chloride Flush Syringe 10 Ml IV PRN PRN LINE FLUSH Nutrition/Malnutrition Assess - Dietary Evaluation Nutrition/Malnutrition Findings: Nutrition Notes Start: 04/15/20 09:43 Freq: Status: Active Protocol: Document 04/15/20 09:43 RAYSHAWN (Rec: 04/15/20 09:48 [facility] SR[facility]- [id number]) Nutrition Notes Need for Assessment generated from: MD Order,Education Initial or Follow up Brief Note Current Diagnosis Diabetes,Hypertension Other Pertinent Diagnosis DKA Current Diet No diet ordered Labs/Tests A1C 11 Pertinent Medications Insulin gtt Height 5 ft 8 in Weight 64.86 kg [place] Body Weight (kg) 70.00 BMI 21.7 Weight Status Appropriate Subjective/Other Information RD consulted for NTR recommendations and diet education. Pt admitted with s /s hyperglycemia. Per medical records, pt reports taking insulin as prescribed. He tested positive for COVID-19 a month ago; works in a [employer]. Burn Absent Trauma Absent GI Symptoms Vomiting Minimum of two criteria No Nutrition Intervention Follow-Up By: 04/19/20 Additional Comments F/U: diet advancement, diet education needs (CHO- controlled)
[2020-04-18 10:17] LABS: C-Reactive Protein 1.3 mg/dL (0.00-1.30)
[2020-04-18] MEDS: cefTRIAXone/NS 2 GM/100 ML 2 GM/100 ML BAG IV SCH (10:19)
[2020-04-18] MEDS: ASCORBIC ACID 500 MG TAB PO SCH ×2 (10:20→21:43)
[2020-04-18] MEDS: LISINOPRIL 10 MG TAB PO SCH (10:20)
[2020-04-18] MEDS: FAMOTIDINE 20 MG TAB PO SCH ×2 (10:20→21:43)
[2020-04-18] MEDS: ZINC SULFATE 220 MG CAP PO SCH (10:20)
--- NOTE | 2020-04-18 11:55 | Consultation ---
History of Present Illness - Reason for Consult Consult date: 04/18/20 persistent COVID test Requesting physician: AUTUMN LORENZO - History of Present Illness 51 years old male with history of uncontrolled diabetes, hypertension, COVID-19 test +6 weeks ago, admitted on 04/14/2020 due to 7-day history of nausea, vomiting, shortness of breath. Patient denies any abdominal pain or diarrhea. Patient denies any urinary frequency, dysuria, hematuria. 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 Patient denies any cough, shortness of breath, dyspnea on exertion. On arrival, temperature 97.4, HR 117, RR 40, O2 sat 97%, BP 96/58. Initial WBC 21. Glucose 704. Creatinine 1.9. Sodium 131. Lactate 5.7. A1c 11. Ferritin 323. CRP 1.3. D-dimer 933. LDH 155. Procalcitonin 0.07. Urinalysis negative. COVID-19 on 04/15/2020+. Blood culture 04/14/2020-. Chest x-ray no consolidations. Patient was admitted to the ICU for IV insulin, anion gap is closed and patient transferred to the floor. Review of Systems: positive in bold print General: fever, chills, malaise Cutaneous: rash, pruritus Head: headaches or injury Eyes: changes in vision, eye pain, double vision Ears: ear pain, ear discharge, ringing or hearing loss Nose: nose bleeding, stuffiness Mouth & throat: bleeding gums, horseness, no dental problems, or swollen glands Neck: no pain, node enlargement/lumps, tyroid enlargement or tenderness Respiratory: SOB, cough, HOFFMAN, wheezing, sputum, hemoptysis, pleuritic chest pain Cardiovascular: chest pain, leg edema, cyanosis, HOFFMAN, orthopnea Musculoskeletal: edema, deformities, pain Gastrointestinal: nausea, vomiting, hematemesis, diarrhea, constipation, melena, bright red blood in stools, fecal incontinence, jaundice Genitourinary/Reproductive: frequent urination, dysuria, hematuria, incontinence Neurogical: seizures, headaches, weakness, paresthesias, loss of speech or vision; memory loss, vertigo, tremors, numbness Psychiatric: stable mood; excessive anxiety, sadness or moodiness Past History Past Medical History: diabetes, hypertension Past Surgical History: No surgical history Social history: no significant social history, 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) Family history: no significant family history Medications and Allergies Allergies Allergy/AdvReac Type Severity Reaction Status Date / Time No Known Allergies Allergy Verified 10/22/14 23:31 Home Medications Medication Instructions Recorded Confirmed Last Taken Type Lisinopril/Hydrochlorothiazide 1 tab PO QDAY 10/23/14 04/14/20 10/22/14 History [Zestoretic 10-12.5 mg] Insulin NPH Hum/Reg Insulin Hm 30 units SQ BID 04/14/20 04/14/20 Unknown History [Novolin 70-30 Flexpen] Active Meds: Active Medications Acetaminophen (Tylenol) 650 mg PO Q4H PRN PRN Reason: Pain MILD(1-3)/Fever >100.5/GUTIÉRREZ Ascorbic Acid (Vitamin C) 500 mg PO BID [facility] Last Admin: 04/18/20 10:20 Dose: 500 mg Documented by: Dextrose (D50w (25gm) Syringe) 0 ml IV Q30MIN PRN; Protocol PRN Reason: Hypoglycemia Famotidine (Pepcid) 20 mg PO BID [facility] Last Admin: 04/18/20 10:20 Dose: 20 mg Documented by: Potassium Chloride/Dextrose/Sod Cl (D5w/0.45% Nacl/Kcl 20 Meq) 20 meq in 1,000 mls @ 125 mls/hr IV DIRECT [facility] Last Admin: 04/18/20 06:28 Dose: 125 mls/hr Documented by: Ceftriaxone Sodium (Rocephin/Ns 2 Gm/100 Ml) 2 gm in 100 mls @ 200 mls/hr IV Q24HR GAYLE; Protocol Stop: 04/19/20 10:29 Last Admin: 04/18/20 10:19 Dose: 200 mls/hr Documented by: Insulin Human Isoph/Insulin Regular (Humulin 70/30) 30 unit SUB-Q BIDDIAB [facility] Last Admin: 04/18/20 08:23 Dose: 30 unit Documented by: Insulin Human Lispro (Humalog) 0 unit SUB-Q Q4HR [facility]; Protocol Last Admin: 04/18/20 10:21 Dose: 1 unit Documented by: Lisinopril (Zestril) 10 mg PO QDAY [facility] Last Admin: 04/18/20 10:20 Dose: 10 mg Documented by: Metoclopramide HCl (Reglan) 10 mg IV Q6H PRN PRN Reason: Nausea And Vomiting Last Admin: 04/18/20 10:55 Dose: 10 mg Documented by: Ondansetron HCl (Zofran) 4 mg IV Q8H PRN PRN Reason: Nausea And Vomiting Last Admin: 04/17/20 07:30 Dose: 4 mg Documented by: Oxycodone/Acetaminophen (Percocet 5/325) 1 tab PO Q6H PRN PRN Reason: Pain, Moderate (4-6) Promethazine HCl (Phenergan) 25 mg CA Q6H PRN PRN Reason: Nausea And Vomiting Last Admin: 04/17/20 17:16 Dose: 25 mg Documented by: Sodium Chloride (Sodium Chloride Flush Syringe 10 Ml) 10 ml IV BID [facility] Last Admin: 04/18/20 10:20 Dose: 10 ml Documented by: Sodium Chloride (Sodium Chloride Flush Syringe 10 Ml) 10 ml IV PRN PRN PRN Reason: LINE FLUSH Zinc Sulfate (Zinc Sulfate) 220 mg PO QDAY [facility] Last Admin: 04/18/20 10:20 Dose: 220 mg Documented by: Physical Examination - Physical Exam Narrative exam: General appearance: Alert in NAD Eyes: anicteric sclerae, moist conjunctivae; no lid-lag; PERRLA HENT: Atraumatic; oropharynx clear with moist mucous membranes and no oral thrush; normal hard and soft palate. Lungs: CTA, with normal respiratory effort and no intercostal retractions CV: RRR no murmur Abdomen: Soft, non-tender; no masses or hepatosplenomegaly Extremities: no edema, no cyanosis Skin: No rash. Psych: Appropriate affect, alert and oriented to person, place and time. Neuro: alert and oriented x 3. Moving all extermities - Constitutional Vitals: Vital Signs Temp Pulse Resp BP Pulse Ox 99.3 F 78 18 136/77 98 04/18/20 04:50 04/18/20 10:20 04/18/20 04:50 04/18/20 10:20 04/18/20 04:50 Temperature -Last 24 Hours Temperature 99.3 F Temperature 98.7 F Temperature 99.6 F Temperature 99.4 F Results - Labs CBC & Chem 7: 04/15/20 04:21 04/18/20 09:19 Labs: Abnormal lab results 04/17/20 04/17/20 04/17/20 Range/Units 13:29 13:44 17:18 D-Dimer (0-234) ng/mlDDU Potassium (3.6-5.0) mmol/L BUN (9-20) mg/dL Creatinine 0.7 L (0.8-1.5) mg/dL Glucose 146 H (75-100) mg/dL POC Glucose 134 H 144 H (70-105) 04/17/20 04/17/20 04/18/20 Range/Units 18:25 21:26 00:16 D-Dimer (0-234) ng/mlDDU Potassium 3.2 L 3.4 L (3.6-5.0) mmol/L BUN 8 L 7 L (9-20) mg/dL Creatinine 0.6 L 0.7 L (0.8-1.5) mg/dL Glucose 165 H 136 H (75-100) mg/dL POC Glucose 195 H (70-105) 04/18/20 04/18/20 04/18/20 Range/Units 02:47 04:59 06:14 D-Dimer (0-234) ng/mlDDU Potassium 3.2 L (3.6-5.0) mmol/L BUN 7 L (9-20) mg/dL Creatinine 0.7 L (0.8-1.5) mg/dL Glucose 173 H (75-100) mg/dL POC Glucose 150 H 145 H (70-105) 04/18/20 04/18/20 04/18/20 Range/Units 09:19 09:19 09:51 D-Dimer 933.44 H (0-234) ng/mlDDU Potassium (3.6-5.0) mmol/L BUN (9-20) mg/dL Creatinine (0.8-1.5) mg/dL Glucose 271 H (75-100) mg/dL POC Glucose 225 H (70-105) Assessment and Plan Cultures: COVID-19 on 04/15/2020+. Blood culture 04/14/2020- Assessment: 51 y/o male with history of uncontrolled diabetes, hypertension, COVID-19 test +6 weeks ago, admitted on 04/14/2020 due to 7-day history of nausea, vomiting, shortness of breath: #SIRS: Present on admission with tachycardia, tachypnea, hypotension, elevated leukocytosis; likely reactive secondary to severe DKA. #DKA: Patient with diabetes uncontrolled, A1c=11. AnionGAP closed. #Persistent COVID-19 PCR test positive: Patient had initial COVID-19 PCR test positive at work about 6 weeks ago. Patient has been asymptomatic for COVID19 without cough or progressive shortness of breath. Inflammatory markers for cytokine storm are all normal. I doubt active COVID19 infection. Persistent COVID-19 PCR test is likely secondary to prolonged shedding due to uncontrolled diabetes, however this likely represents inactive genetic material, I doubt patient is contagious as per [place] CDC report. A large group of patient with persistent COVID19 PCR were followed and all their contacts, nobody got infected. Recommendations: stop ceftriaxone no need for remdesivir or steroids patient recommended to obtain Benjamin IgG serology test (blood serology test) at a [facility] - test code [id number] to determine if he is immune may repeat COVID19 PCR in 2 weeks if needed for work purposes continue isolation as per [facility] protocol, as there are not RCT available to recommend stopping isolation in this setting. Will follow. Mariella Hill MD Infectious Diseases Delivery Supervisor [facility] ([facility] M [phone] O [phone]
[2020-04-18] MEDS: ONDANSETRON 4 MG/2 ML INJ IV PRN (16:50)
[2020-04-18] MEDS: PROMETHAZINE 25 MG RECT SUPP PR PRN (21:43)
[2020-04-19] MEDS: D5W/0.45% NACL/KCL 20 MEQ 20 MEQ/1,000 ML BAG IV SCH (00:48)
[2020-04-19] MEDS: INSULIN LISPRO 100 UNIT/ML SUB-Q SCH ×3 (02:26→12:40)
[2020-04-19] MEDS: PROMETHAZINE 25 MG RECT SUPP PR PRN (03:45)
--- NOTE | 2020-04-19 04:01 | Cat Scan Report ---
CT angio chest INDICATION: P.E. PROTOCOL!!! elevated D-dimer Omnipaque 350 / 100ml's was used for this exam.. TECHNIQUE: All CT scans at this location are performed using CT dose reduction for ALARA by means of automated e xposure control. Precontrast localizer images were obtained, followed by axial and 3-dimensional jefferson nstruction images, performed at an independent workstation by the radiology ct technologist after IV bolus cont rast injection. COMPARISON: None available. FINDINGS: Mediastinum, kelly and axillae are negative. No pulmonary or pleural disease. No evidence of pulmonary embolus. IMPRESSION: 1. Negative for pulmonary embolus or other acute abnormality. Signer Name: Hari Gore MD Signed: 04/19/2020 3:57 AM Workstation Name: [id number]
[2020-04-19 05:31] LABS: Hematocrit 39.2 % (35.5-45.6); Hemoglobin 13.6 gm/dl (11.8-15.2); Mean Corpuscular HGB Conc 35 % (32-34); Mean Corpuscular Volume 86 fl (84-94); Platelet Count 229 K/mm3 (140-440); Red Blood Count 4.54 M/mm3 (3.65-5.03); Red Cell Distribution Width 13.8 % (13.2-15.2)
[2020-04-19 05:48] LABS: BUN/Creatinine Ratio 9; Blood Urea Nitrogen 7 mg/dL (9-20); Calcium 8.8 mg/dL (8.4-10.2); Hemolysis Index 6
--- NOTE | 2020-04-19 08:03 | Discharge Summary ---
Providers - Providers Date of Admission: 04/14/20 15:14 Attending physician: NIVIA CABRERA MD 04/14/20 21:19 Consult to Dietitian/Nutrition [CONS] Routine Physician Instructions: Reason For Exam: DKA Reason for Consult: Nutrition Recommendations Reason for Consult: Diet education 04/17/20 17:00 Consult to Physician [CONS] Routine Comment: Consulting Provider: JOSE A DIOP Physician Instructions: Reason For Exam: persistent positive Coronavirus for 2 months [facility] Reason for admission: respiratory failure Condition: Stable Hospital course: 54-year-old male with history of diabetes and HTN presents to ED with nausea, vomiting, shortness of breath. Patient states symptoms began yesterday. States he was vomiting throughout the night X7 to 10 times.. Patient states he took some medication to help with his nausea, which is currently improved, however he is complaining of bilateral flank pain at this time. He denies any abdominal pain, urinary frequency, and hematuria. Patient states he feels dehydrated at this time. Patient tested positive for myers virus approximately 1 month ago. 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 Patient tested positive, but states he was asymptomatic. Patient denies ever having fever or cough. He denies chest pain, leg pain or swelling. No exacerbating or relieving factors.Took his Insulin as prescribed. Gap closed, Transferred out of ICU * ID eval pending * CTA Ordered considering Elevated D.Dimer * Adjust sliding scale as Blood glucose still elevated * Disposition been pending CTA and also ID evaluation. It is thought that patient may just have an active genetic material nevertheless we will continue isolation precautions. Also advised patient to continue wearing his mask even on discharge. Will obtain a home O2 evaluation. Patient was seen by ID and as noted: #Persistent COVID-19 PCR test positive: Patient had initial COVID-19 PCR test positive at work about 6 weeks ago. Patient has been asymptomatic for COVID19 without cough or progressive shortness of breath. Inflammatory markers for cytokine storm are all normal. I doubt active COVID19 infection. Persistent COVID-19 PCR test is likely secondary to prolonged shedding due to uncontrolled diabetes, however this likely represents inactive genetic material, I doubt patient is contagious as per [place] CDC report. A large group of patient with persistent COVID19 PCR were followed and all their contacts, nobody got infected. stop ceftriaxone no need for remdesivir or steroids patient recommended to obtain Benjamin IgG serology test (blood serology test) at a [facility] center - test code 623017 to determine if he is immune may repeat COVID19 PCR in 2 weeks if needed for work purposes continue isolation as per [facility] protocol, as there are not RCT available to recommend stopping isolation in this setting. DKA status post treatment now with gap closed. DM Hypertension Hyponatremia now corrected Hypertension Hypokalemia Metabolic acidosis Leukocytosis SIRS Suspected COVID-19 virus infection Disposition: DC-01 TO HOME OR SELFCARE Time spent for discharge: 35 mins Core Measure Documentation - Palliative Care Palliative Care/ Comfort Measures: Not Applicable - Core Measures Any of the following diagnoses?: none Exam - Physical Exam Narrative exam: VITAL SIGNS: Reviewed. GENERAL: The patient appears normally developed, Vital signs as documented. HEAD: No signs of head trauma. EYES: Pupils are equal. Extraocular motions intact. EARS: Hearing grossly intact. MOUTH: Oropharynx is normal. NECK: No adenopathy, no JVD. CHEST: Chest with clear breath sounds bilaterally. No wheezes, rales, or rhonchi. CARDIAC: Regular rate and rhythm. S1 and S2, without murmurs, gallops, or rubs. VASCULAR: No Edema. Peripheral pulses normal and equal in all extremities. ABDOMEN: Soft, non tender and non distended. No rebound or guarding, and no masses palpated. Bowel Sounds normal. MUSCULOSKELETAL: Good range of motion of all major joints. Extremities without clubbing, cyanosis or edema. NEUROLOGIC EXAM: Alert and oriented x 3 No focal sensory or strength deficits. Speech normal. Follows commands. PSYCHIATRIC: Mood normal. SKIN: detial exam as documented in skin assessment - Constitutional Vitals: Temp Pulse Resp BP Pulse Ox 99.0 F 72 20 151/85 99 04/19/20 04:49 04/19/20 04:49 04/19/20 04:49 04/19/20 04:49 04/19/20 04:49 Plan Activity: advance as tolerated, fall precautions Diet: low fat Special Instructions: record daily weights, record daily BP diary Additional Instructions: patient recommended to obtain Benjamin IgG serology test (blood serology test) at a [facility] center - test code [id number] to determine if he is immune. may repeat COVID19 PCR in 2 weeks if needed for work purposes. continue isolation as per [facility] protocol, as there are not RCT available to recommend stopping isolation in this setting. Follow up with: HILARIA BRAND MD [Primary Care Provider] - 3-5 Days JOSE A DIOP MD [Staff Physician] - 14 Days Prescriptions: Docusate Sodium [Colace] 100 mg PO DAILY PRN #30 capsule PRN Reason: Constipation Insulin NPH Hum/Reg Insulin Hm [Novolin 70-30 Flexpen] 30 units SQ BID #100 Famotidine [Pepcid] 20 mg PO DAILY #30 tablet Metoclopramide HCl [Reglan TAB] 5 mg PO TIDAC #20 tablet Ascorbic Acid [Vitamin C] 500 mg PO BID #30 tablet Zinc Sulfate 220 mg PO QDAY #30 capsule Ondansetron [Zofran Odt] 4 mg PO Q6H #30 tab.cyndeedis
--- NOTE | 2020-04-19 08:33 | Progress Note ---
Assessment and Plan Cultures: COVID-19 on 04/15/2020+. Blood culture 04/14/2020- Assessment: 51 y/o male with history of uncontrolled diabetes, hypertension, COVID-19 test +6 weeks ago, admitted on 04/14/2020 due to 7-day history of nausea, vomiting, shortness of breath: #SIRS: Present on admission with tachycardia, tachypnea, hypotension, elevated leukocytosis; likely reactive secondary to severe DKA. #DKA: Patient with diabetes uncontrolled, A1c=11. AnionGAP closed. #Persistent COVID-19 PCR test positive: Patient had initial COVID-19 PCR test positive at work about 6 weeks ago. Patient has been asymptomatic for COVID19 without cough or progressive shortness of breath. Inflammatory markers for cytokine storm are all normal. I doubt active COVID19 infection. Persistent COVID-19 PCR test is likely secondary to prolonged shedding due to uncontrolled diabetes, however this likely represents inactive genetic material, I doubt patient is contagious as per [place] CDC report. A large group of patient with persistent COVID19 PCR were followed and all their contacts, nobody got infected. #Elevated ddimer: CTA no PE Recommendations: no need for remdesivir or steroids as there is no hypoxemia and CRP/ferritin/LDH are normal patient recommended to obtain Benjamin IgG serology test (blood serology test) at a [facility] - test code [id number] to determine if he is immune may repeat COVID19 PCR in 2 weeks if needed for work purposes continue isolation as per [facility] protocol, as there are not RCT available to recommend stopping isolation in this setting. ID clinic telemed apt in 2 weeks D/W Dr Morrissey Will follow. Mariella Hill MD Infectious Diseases [employer] [facility] M [phone] O [phone] Subjective Date of service: 04/19/20 Principal diagnosis: DKA Interval history: Feels nauseated but no fever or vomiting, no cough Objective - Exam Narrative Exam: General appearance: Alert in NAD Limited due to PPE conservation - Constitutional Vitals: Vital Signs Temp Pulse Resp BP Pulse Ox 99.0 F 72 20 151/85 99 04/19/20 04:49 04/19/20 04:49 04/19/20 04:49 04/19/20 04:49 04/19/20 04:49 Temperature -Last 24 Hours Temperature 99.0 F Temperature 99.2 F Temperature 98.4 F Temperature 98.4 F - Labs CBC & Chem 7: 04/19/20 05:15 04/19/20 05:15 Labs: Abnormal lab results 04/18/20 04/18/20 04/18/20 Range/Units 09:19 09:19 09:51 WBC (4.5-11.0) K/mm3 MCHC (32-34) % D-Dimer 933.44 H (0-234) ng/mlDDU Potassium (3.6-5.0) mmol/L BUN (9-20) mg/dL Glucose 271 H (75-100) mg/dL POC Glucose 225 H (70-105) 04/18/20 04/19/20 04/19/20 Range/Units 22:52 02:11 05:15 WBC 2.8 L (4.5-11.0) K/mm3 MCHC 35 H (32-34) % D-Dimer (0-234) ng/mlDDU Potassium (3.6-5.0) mmol/L BUN (9-20) mg/dL Glucose (75-100) mg/dL POC Glucose 310 H 155 H (70-105) 04/19/20 Range/Units 05:15 WBC (4.5-11.0) K/mm3 MCHC (32-34) % D-Dimer (0-234) ng/mlDDU Potassium 3.0 L (3.6-5.0) mmol/L BUN 7 L (9-20) mg/dL Glucose (75-100) mg/dL POC Glucose (70-105)
[2020-04-19] MEDS: INSULIN NPH/REGULAR 70/30 INJ SUB-Q SCH (09:17)
[2020-04-19] MEDS: ASCORBIC ACID 500 MG TAB PO SCH (09:30)
[2020-04-19] MEDS: FAMOTIDINE 20 MG TAB PO SCH (09:30)
[2020-04-19] MEDS: LISINOPRIL 10 MG TAB PO SCH (09:30)
[2020-04-19] MEDS: ZINC SULFATE 220 MG CAP PO SCH (09:30)
[2020-04-19] MEDS ORDERED: ONDANSETRON 4 MG/2 ML INJ IV PRN (10:06)
[2020-04-19] MEDS ORDERED: METOCLOPRAMIDE 10 MG/2 ML INJ IV ONE (10:30)
[2020-04-19 12:02] VITALS: BP 151/77
== END 2020-04-19 15:30 | disposition home or self-care (01) | DRG 637 ==
LOC: ED 11:51 → CC1 15:14 → 3A 04-17 12:17
PROVIDERS: ADMIT Internal Medicine; ATTEND Internal Medicine
DX: E11.10 Type 2 diabetes mellitus with ketoacidosis without coma (principal); U07.1 COVID-19; E87.1 Hypo-osmolality and hyponatremia; E87.2 Acidosis; R65.10 Systemic inflammatory response syndrome (SIRS) of non-infectious origin without acute organ dysfunction; I82.409 Acute embolism and thrombosis of unspecified deep veins of unspecified lower extremity; E87.5 Hyperkalemia; I10 Essential (primary) hypertension; D72.829 Elevated white blood cell count, unspecified; E87.6 Hypokalemia; Z79.4 Long term (current) use of insulin; Z85.038 Personal history of other malignant neoplasm of large intestine; Z82.49 Family history of ischemic heart disease and other diseases of the circulatory system
CPT/HCPCS: 36415; 71045; 71275; 80048; 80053; 81001; 82010; 82140; 82728; 82805; 82947; 82962; 83036; 83615; 83735; 84100; 84145; 84484; 85007; 85025; 85027; 85379; 85610; 85730; 86140; 87040; 93005; G0378; J0610; J0692; J0696; J1170; J1815; J2405; J2765; J7030; Q9967; U0003-CS